=== PATIENT | male | born 1955 | race Caucasian/White ===

== ENCOUNTER 2021-01-31 10:00 | Emergency (ER) | payer MEDICARE, OTHER, SELFPAY ==
[2021-01-31 10:19] VITALS: BP 191/88; PULSE 96; RESP 22; TEMP 37.3; O2SAT 95; BMI 56.9
--- NOTE | 2021-01-31 10:22 | DI.US.S_ITS ---
PROCEDURE: US PERIPH VENOUS LOW EXTREM LT INDICATIONS: Lower L leg pain, swelling, redness TECHNIQUE: Real-time imaging, as well as color and pulse Doppler interrogation, were performed of the lower extremity deep veins from the inguinal ligament to the popliteal fossa. COMPARISON: None. FINDINGS: The common femoral, femoral and popliteal veins are normally compressible, and free of intraluminal thrombus. Color and pulse Doppler demonstrate normal phasic intraluminal flow. There is normal augmentation response to distal compression maneuver. IMPRESSION: No DVT found. Quality of visualization is limited by patient large body habitus. Dictated by: Jese Acevedo M.D. on 01/31/2021 at 11:13 Approved by: Jese Acevedo M.D. on 01/31/2021 at 11:13
--- NOTE | 2021-01-31 14:35 | ED_ITS ---
HPI - Extremity Injury (Lower) General Chief Complaint: Extremity Injury, Lower Stated Complaint: infection in lower left leg/ blood clot? Time Seen by Provider: 01/31/21 14:35 Source: patient Mode of arrival: Ambulatory Limitations: no limitations History of Present Illness HPI Narrative: 65-year-old male comes emergency department with complaint of infection in his left lower leg. Patient states he is chronically swollen legs, his swelling has not worsened, he has some chronic erythema and venous stasis changes but noted some new redness in the lower she in region. Patient states tender. It has not been draining. He states it is worse when he lowers his leg and when elevated is improved. Patient has not had any fevers. He denies any new chest pain, shortness of breath, no nausea or vomiting, no chills. No other GI or urinary symptoms. Patient does take medication for gout but does not feel the pain as much in his joint as higher up in the wheeler. He is on metoprolol, simvastatin, hydrochlorothiazide as well as Lasix. And takes allopurinol as well. Related Data Home Medications Medication Instructions Recorded Confirmed tamsulosin 0.4 mg capsule (Flomax) 0.4 mg PO QDAY #0 08/20/16 allopurinol 100 mg tablet 100 mg PO DAILY 01/31/21 01/31/21 furosemide 20 mg tablet (Lasix) 20 mg PO DAILY 01/31/21 01/31/21 hydrochlorothiazide 25 mg tablet 25 mg PO DAILY 01/31/21 01/31/21 losartan 50 mg tablet 50 mg PO DAILY 01/31/21 01/31/21 metoprolol succinate 200 mg 200 mg PO DAILY 01/31/21 01/31/21 tablet,extended release 24 hr omeprazole 20 mg capsule,delayed 20 mg PO DAILY 01/31/21 01/31/21 release simvastatin 20 mg tablet (Zocor) 20 mg PO DAILY 01/31/21 01/31/21 Previous Rx's Medication Instructions Recorded doxycycline hyclate 100 mg tablet 100 mg PO BID #20 tab 01/31/21 hydrocodone 5 mg-acetaminophen 325 1 tab PO Q6H PRN #5 tab 01/31/21 mg tablet Allergies Allergy/AdvReac Type Severity Reaction Status Date / Time Influenza Virus Vaccines Allergy Severe Abcess Verified 01/31/21 10:19 [INFLUENZA VIRUS VACCINES] Review of Systems Review of Systems ROS Unobtainable: All systems reviewed & are unremarkable except as noted in HPI and below Patient History Social History Smoking Status: Never smoker Smoking Status: Never smoker alcohol intake frequency: a few times a month Substance Use Type: does not use Exam Narrative Exam Narrative: GENERAL: Alert and oriented x three, male in mild distress. HEENT: Head normocephalic, atraumatic, EOMI, pupils reactive, face symmetric, moist mucous membranes NECK: Supple, full range of motion CARDIOVASCULAR: Regular rate and rhythm without murmurs, rubs or gallops. RESPIRATORY: Breath sounds equal bilaterally, no wheezes rales or rhonchi. ABDOMEN: Soft, nontender. Normoactive bowel sounds all 4 quadrants. No guarding or rebound, rigidity, no mass : No CVA tenderness EXTREMITIES: Normal range of motion, patient has bilateral lower extremity edema. Rate is equal to left. Patient has some warmth erythema of the anterior wheeler, there is no fluid collection or induration. He does have some chronic venous stasis changes on both lower extremities present. Patient does not have any bony tenderness appreciated. Cap refill is less than 2 seconds and sensation is intact. Neurovascularly intact NEUROLOGICAL: Cranial nerves II through XII grossly intact. Moving all extremities SKIN: Warm, dry, no petechiae, no wounds or lacerations noted. Initial Vital Signs Initial Vital Signs: Vital Signs Temperature 99.2 F 01/31/21 10:19 Pulse Rate 96 H 01/31/21 10:19 Respiratory Rate 22 01/31/21 10:19 Blood Pressure 191/88 H 01/31/21 10:19 Pulse Oximetry 95 01/31/21 10:19 Course Orders Ordered: Discontinued Medications Hydrocodone Bitart/Acetaminophen (Hydrocodone/Acet 5/325 Tablet) 1 tab PO NOW ONE Stop: 01/31/21 14:50 Last Admin: 01/31/21 14:59 Dose: 1 tab Documented by: SANAM Doxycycline Hyclate (Doxycycline Hyclate 100 Mg Tablet) 100 mg PO NOW ONE Stop: 01/31/21 14:50 Last Admin: 01/31/21 14:59 Dose: 100 mg Documented by: SANAM Vital Signs Vital signs: Vital Signs - 8 hr 01/31/21 15:22 Temperature 98 F Pulse Rate 101 H Respiratory Rate 24 Blood Pressure 199/91 H Pulse Oximetry 96 MDM - Extremity Injury (Lower) Imaging Data Extremity x-ray #1: Radiologist's Impression: Deshawn Swann 65 M [address] [id number] ReportSigned Patient: Deshawn Swann GMR#: [id number]: [id number]:[id number]/Sex: 65 / MDate of Service: 01/31/21Loc: EDAccession Number: [id number] Procedure: US periph venous low extrem lt Ordering Provider: Margarita Walden D.O. PROCEDURE: US PERIPH VENOUS LOW EXTREM LT INDICATIONS: Lower L leg pain, swelling, redness TECHNIQUE: Real-time imaging, as well as color and pulse Doppler interrogation, were performed of the lower extremity deep veins from the inguinal ligament to the popliteal fossa. COMPARISON: None. FINDINGS: The common femoral, femoral and popliteal veins are normally compressible, and free of intraluminal thrombus. Color and pulse Doppler demonstrate normal phasic intraluminal flow. There is normal augmentation response to distal compression maneuver. IMPRESSION: No DVT found. Quality of visualization is limited by patient large body habitus. Dictated by: Jese Acevedo M.D. on 01/31/2021 at 11:13 Approved by: Jese Acevedo M.D. on 01/31/2021 at 11:13 [facility] Narrative Medical decision making narrative: 65-year-old male comes with complaints of erythema, pain and discomfort in his left lower extremity. DVT ultrasound is negative. Patient has not appreciated new swelling in his extremities. He has not had any new cardiac symptoms that make me suspicious for acute onset of CHF but he does appear to have developed a cellulitis on his wheeler. Patient was started on oral medication. Short prescription of pain medication and encouraged to return for worsening symptoms. Discharge Plan Departure Patient Disposition: Home Clinical Impression: Cellulitis of left leg Instructions: DI for Cellulitis -- Adult Activity Restrictions/Additional Instructions: Follow-up in the next week for recheck if you are not having significant improvement/resolution of your symptoms. Take antibiotics until completely gone. Take pain medication as needed. This medication can make you sleepy do not drive, perform hazardous activities or make any major decisions while taking it. This medication will make you constipated please take a stool softener once to twice daily until stools are soft and regular. Prescription to [facility] in [place]. Elevate legs regularly when your able. Continue home medications as prescribed. Please return for fevers, rapidly worsening redness, swelling, increasing pain, new chest pain or shortness of breath, lightheadedness or passing out, new numbness or tingling or weakness of her extremities Prescriptions: New hydrocodone-acetaminophen 5-325 mg tablet 1 tab PO Q6H PRN (Reason: pain) Qty: 5 RF: 0 doxycycline hyclate 100 mg tablet 100 mg PO BID Qty: 20 RF: 0 No Action losartan 50 mg tablet 50 mg PO DAILY RF: 0 simvastatin [Zocor] 20 mg tablet 20 mg PO DAILY RF: 0 omeprazole 20 mg capsule,delayed release(DR/EC) 20 mg PO DAILY RF: 0 hydrochlorothiazide 25 mg tablet 25 mg PO DAILY RF: 0 metoprolol succinate 200 mg tablet extended release 24 hr 200 mg PO DAILY RF: 0 furosemide [Lasix] 20 mg tablet 20 mg PO DAILY RF: 0 allopurinol 100 mg tablet 100 mg PO DAILY RF: 0 tamsulosin [Flomax] 0.4 MG capsule,extended release 24hr 0.4 mg PO QDAY Qty: 0 RF: 0 Referrals: Sudhakar Up MD [Primary Care Provider] -
[2021-01-31] MEDS: DOXYCYCLINE HYCLATE 100 MG TABLET PO (14:59)
[2021-01-31] MEDS: HYDROCODONE/ACET 5/325 TABLET 1 TAB PO (14:59)
[2021-01-31 15:22] VITALS: BP 199/91; PULSE 101; RESP 24; TEMP 36.6; O2SAT 96
== END 2021-01-31 15:23 | disposition home or self-care (01) ==
PROVIDERS: Emergency Provider Emergency Medicine; Family Provider Internal Medicine; PCP Internal Medicine
DX: L03.116 Cellulitis of left lower limb (principal)
CPT/HCPCS: 93971; 99283

== ENCOUNTER 2021-04-09 17:19 | Emergency (ER) | payer MEDICARE, OTHER, SELFPAY ==
[2021-04-09 17:39] VITALS: BP 203/100; PULSE 81; RESP 18; TEMP 36.6; O2SAT 98; BMI 56.9
--- NOTE | 2021-04-09 20:40 | ED.BACK ---
HPI - Back Pain/Injury General Chief Complaint: Back Pain/Injury Stated Complaint: lower back spasms Time Seen by Provider: 04/09/21 19:19 Source: patient Limitations: no limitations History of Present Illness HPI Narrative: This is a 66-year-old male who states he tweaked his back getting out of bed earlier. He states as the day has progressed he has had more spasm and tightness particularly in left side. He has not had any other injuries. He denies any radiation down his legs. No numbness, tingling or weakness. No loss of bowel or bladder control. He has not had any significant back issues in the past. He has not any prior back surgeries. Patient states that movement definitely makes it worse. Patient has not had anything for pain today. He denies fevers. He denies any other symptoms. He denies any saddle anesthesia. He does take anticoagulant for atrial fibrillation, hypertension and dyslipidemia. Related Data Home Medications Medication Instructions Recorded Confirmed tamsulosin 0.4 mg capsule (Flomax) 0.4 mg PO QDAY #0 08/20/16 allopurinol 100 mg tablet 100 mg PO DAILY 01/31/21 01/31/21 furosemide 20 mg tablet (Lasix) 20 mg PO DAILY 01/31/21 01/31/21 hydrochlorothiazide 25 mg tablet 25 mg PO DAILY 01/31/21 01/31/21 losartan 50 mg tablet 50 mg PO DAILY 01/31/21 01/31/21 metoprolol succinate 200 mg 200 mg PO DAILY 01/31/21 01/31/21 tablet,extended release 24 hr omeprazole 20 mg capsule,delayed 20 mg PO DAILY 01/31/21 01/31/21 release simvastatin 20 mg tablet (Zocor) 20 mg PO DAILY 01/31/21 01/31/21 Previous Rx's Medication Instructions Recorded doxycycline hyclate 100 mg tablet 100 mg PO BID #20 tab 01/31/21 hydrocodone 5 mg-acetaminophen 325 1 tab PO Q6H PRN #5 tab 01/31/21 mg tablet diazepam 10 mg tablet (Valium) 10 mg PO TID PRN #10 tab 04/09/21 oxycodone 5 mg tablet 5 mg PO QID PRN #10 tab 04/09/21 Allergies Allergy/AdvReac Type Severity Reaction Status Date / Time Influenza Virus Vaccines Allergy Severe Abcess Verified 04/09/21 17:39 [INFLUENZA VIRUS VACCINES] Review of Systems Review of Systems ROS Unobtainable: All systems reviewed & are unremarkable except as noted in HPI and below Patient History Social History Smoking Status: Never smoker Smoking Status: Never smoker alcohol intake frequency: a few times a month Substance Use Type: does not use Exam Narrative Exam Narrative: GENERAL: Alert and oriented x three, obese male in milddistress. Patient is seated in wheelchair. HEENT: Head normocephalic, atraumatic, EOMI, pupils reactive, face symmetric, moist mucous membranes NECK: Supple, full range of motion CARDIOVASCULAR: Regular rate and rhythm without murmurs, rubs or gallops. RESPIRATORY: Breath sounds equal bilaterally, no wheezes rales or rhonchi. ABDOMEN: Soft, nontender. Normoactive bowel sounds all 4 quadrants. No guarding or rebound, rigidity, no mass : No CVA tenderness BACK: No cervical, thoracic or lumbar vertebral point tenderness. Patient has positive for decreased range of motion. Patient is quite uncomfortable leaning forward. Rectal exam is deferred. Muscle strength is 5/5 in lower extremities. Patient does have increased pain with straight leg raise on the right. He does not with the left. DTRs are 2/4 and lower extremities. Dorsalis pedis and tibialis pulses are 2+ and lower extremities. Sensation is intact in the lower extremities. EXTREMITIES: Normal range of motion, bilateral lower extremity edema. Neurovascularly intact NEUROLOGICAL: Cranial nerves II through XII grossly intact. Moving all extremities SKIN: Warm, dry, no petechiae, no rashes or lesions. Initial Vital Signs Initial Vital Signs: Vital Signs Temperature 97.8 F 04/09/21 17:39 Pulse Rate 81 04/09/21 17:39 Respiratory Rate 18 04/09/21 17:39 Blood Pressure 203/100 H 04/09/21 17:39 Pulse Oximetry 98 04/09/21 17:39 Course Orders Ordered: Discontinued Medications Diazepam (Diazepam 5 Mg Tablet) 10 mg PO NOW ONE Stop: 04/09/21 22:10 Last Admin: 04/09/21 22:26 Dose: 10 mg Documented by: KAYLEY Morphine Sulfate (Morphine 4 Mg/Ml Inj) 4 mg IM NOW ONE Stop: 09/07/21 22:10 Last Admin: 04/09/21 22:26 Dose: 4 mg Documented by: KAYLEY Oxycodone/Acetaminophen (Oxycodone/Apap 5/325 Prepack) 1 bottle [facility] [place] [facility] ONE Stop: 04/09/21 22:16 Last Admin: 04/09/21 22:26 Dose: 1 bottle Documented by: KAYLEY Vital Signs Vital signs: Vital Signs - 8 hr 04/09/21 22:20 Pulse Rate 83 Respiratory Rate 16 Blood Pressure 214/38 H Pulse Oximetry 100 MDM - Back Pain/Injury MDM Narrative Medical decision making narrative: This is a 66-year-old male who states he tweaked his back patient did not have any red flag symptoms. At this time after discussion imaging is deferred. Plan for pain control medication for spasm. Return precautions discussed. All questions answered. Discharge Plan Departure Patient Disposition: Home Clinical Impression: Back pain Instructions: DI for Back Strain or Sprain Activity Restrictions/Additional Instructions: Follow-up with your physician in the next week if your symptoms are not improving. May take muscle relaxer 1 tablet every 8 hours as needed. You may take Tylenol up to a 1000 mg every 8 hours as needed for pain. If this is an adequate you may take narcotic pain medication in addition 1 tablet every 6 hours. This medication can make you sleepy do not drive, perform hazardous activities or make any major decisions while taking it. This medication will make you constipated please take a stool softener once to twice daily until stools are soft and regular. Prescription sent to [facility] in [place]. Please return for fevers, new or worsening back pain, loss of bowel or bladder control, rapidly worsening pain, weakness, numbness or tingling in your extremities or other new or concerning symptoms. Prescriptions: New diazepam [Valium] 10 mg tablet 10 mg PO TID PRN (Reason: muscle spasm) Qty: 10 RF: 0 oxycodone 5 mg tablet 5 mg PO QID PRN (Reason: pain) Qty: 10 RF: 0 No Action losartan 50 mg tablet 50 mg PO DAILY RF: 0 simvastatin [Zocor] 20 mg tablet 20 mg PO DAILY RF: 0 omeprazole 20 mg capsule,delayed release(DR/EC) 20 mg PO DAILY RF: 0 hydrochlorothiazide 25 mg tablet 25 mg PO DAILY RF: 0 metoprolol succinate 200 mg tablet extended release 24 hr 200 mg PO DAILY RF: 0 furosemide [Lasix] 20 mg tablet 20 mg PO DAILY RF: 0 allopurinol 100 mg tablet 100 mg PO DAILY RF: 0 tamsulosin [Flomax] 0.4 MG capsule,extended release 24hr 0.4 mg PO QDAY Qty: 0 RF: 0 hydrocodone-acetaminophen 5-325 mg tablet 1 tab PO Q6H PRN (Reason: pain) Qty: 5 RF: 0 doxycycline hyclate 100 mg tablet 100 mg PO BID Qty: 20 RF: 0
--- NOTE | 2021-04-09 21:35 | PC.NURSE ---
Hurt back on thursday getting out of bed. Pain was improving until today when he was getting into his car, then started having spasms in his lower left back.
[2021-04-09 22:20] VITALS: BP 214/38; PULSE 83; RESP 16; O2SAT 100
[2021-04-09] MEDS: MORPHINE 4 MG/ML INJ IM (22:26)
[2021-04-09] MEDS: diazePAM 5 MG TABLET 10 MG PO (22:26)
[2021-04-09] MEDS: OXYCODONE/APAP 5/325 PREPACK 1 BOTTLE MISC (22:26)
== END 2021-04-09 22:41 | disposition home or self-care (01) ==
PROVIDERS: Emergency Provider Emergency Medicine; Family Provider Internal Medicine
DX: M54.9 Dorsalgia, unspecified (principal)
CPT/HCPCS: 96372; 99283; J2270

== ENCOUNTER → 2021-08-27 13:50 | Outpatient (CLI) | payer MEDICARE, OTHER, SELFPAY | PROVIDERS: Family Provider Internal Medicine; PCP Student in an Organized Health Care Education/Training Program; Referring Provider Student in an Organized Health Care Education/Training Program; Visit Provider Family Medicine | DX: I87.2 Venous insufficiency (chronic) (peripheral) (principal); L97.822 Non-pressure chronic ulcer of other part of left lower leg with fat layer exposed; L03.116 Cellulitis of left lower limb; R60.0 Localized edema; E66.01 Morbid (severe) obesity due to excess calories; Z68.43 Body mass index [BMI] 50.0-59.9, adult | CPT/HCPCS: 87070; 87075; 87077; 87185; 87186; 87205; 93923; 97597; 99204; 99214 ==

== ENCOUNTER → 2021-08-29 15:14 | Outpatient (CLI) | payer MEDICARE, OTHER, SELFPAY | PROVIDERS: Family Provider Internal Medicine; PCP Student in an Organized Health Care Education/Training Program; Referring Provider Student in an Organized Health Care Education/Training Program; Visit Provider Family Medicine | DX: I87.2 Venous insufficiency (chronic) (peripheral) (principal); L97.822 Non-pressure chronic ulcer of other part of left lower leg with fat layer exposed; R60.0 Localized edema | CPT/HCPCS: 29581 ==

== ENCOUNTER → 2021-09-05 13:40 | Outpatient (CLI) | payer MEDICARE, OTHER, SELFPAY | PROVIDERS: Family Provider Internal Medicine; PCP Student in an Organized Health Care Education/Training Program; Referring Provider Student in an Organized Health Care Education/Training Program; Visit Provider Family Medicine | DX: I87.2 Venous insufficiency (chronic) (peripheral) (principal); L97.821 Non-pressure chronic ulcer of other part of left lower leg limited to breakdown of skin; L03.116 Cellulitis of left lower limb; B96.5 Pseudomonas (aeruginosa) (mallei) (pseudomallei) as the cause of diseases classified elsewhere; B95.2 Enterococcus as the cause of diseases classified elsewhere; B95.7 Other staphylococcus as the cause of diseases classified elsewhere; R60.0 Localized edema; Z68.43 Body mass index [BMI] 50.0-59.9, adult | CPT/HCPCS: 99214 ==

== ENCOUNTER → 2021-09-12 14:34 | Outpatient (CLI) | payer MEDICARE, OTHER, SELFPAY | PROVIDERS: Family Provider Internal Medicine; PCP Student in an Organized Health Care Education/Training Program; Referring Provider Student in an Organized Health Care Education/Training Program; Visit Provider Family Medicine | DX: I87.2 Venous insufficiency (chronic) (peripheral) (principal); L97.821 Non-pressure chronic ulcer of other part of left lower leg limited to breakdown of skin; R60.0 Localized edema; M67.833 Other specified disorders of tendon, right wrist; T36.8X5A Adverse effect of other systemic antibiotics, initial encounter; Z68.43 Body mass index [BMI] 50.0-59.9, adult | CPT/HCPCS: 99214 ==

== ENCOUNTER → 2021-09-19 14:56 | Outpatient (CLI) | payer MEDICARE, OTHER, SELFPAY | PROVIDERS: Family Provider Internal Medicine; PCP Student in an Organized Health Care Education/Training Program; Referring Provider Student in an Organized Health Care Education/Training Program; Visit Provider Family Medicine | DX: I87.2 Venous insufficiency (chronic) (peripheral) (principal); L97.821 Non-pressure chronic ulcer of other part of left lower leg limited to breakdown of skin | CPT/HCPCS: 99212 ==

== ENCOUNTER 2022-02-02 06:18 | Emergency (ER) | payer MEDICARE, OTHER, SELFPAY ==
[2022-02-02 06:28] VITALS: BP 177/96; PULSE 69; RESP 22; TEMP 35.6; O2SAT 97; BMI 56.1
--- NOTE | 2022-02-02 06:34 | ED.EXTPRO ---
HPI - Extremity Problem <Shey Lee MD - Last Filed: 02/05/22 18:07> General Chief complaint: Extremity Problem,Nontraumatic Stated complaint: Rt. ankle pain Time Seen by Provider: 02/02/22 06:22 Source: patient and family Mode of arrival: Wheelchair History of Present Illness HPI Narrative: 67-year-old gentleman with morbid obesity, lower extremity edema, chronic back pain, hypertension, reflux, hyperlipidemia, BPH presents with right ankle and heel pain. He describes this as acutely starting over the last 4 days worse with the 1st step of the day or after he has been resting for a period of time. Seems to be worse on the bottom of his foot but involves the posterior portion of the heel into the Achilles tendon. He describes it is hurting over the arch of the foot. There has been no skin breakdown no significant swelling, no redness or warmth. He has not had any specific trauma of which he is aware. He typically wears compression socks and has not been able to do so because his foot has been hurting too much. Does have a history gout but has not had a flare recently in takes allopurinol regularly. He describes no change to his lower extremity edema, chest pain, palpitations, change to his baseline dyspnea. Related Data Home Medications Medication Instructions Recorded Confirmed tamsulosin 0.4 mg capsule (Flomax) 0.4 mg PO QDAY ##0 08/20/16 allopurinol 100 mg tablet 100 mg PO DAILY 01/31/21 01/31/21 furosemide 20 mg tablet (Lasix) 20 mg PO DAILY 01/31/21 01/31/21 hydrochlorothiazide 25 mg tablet 25 mg PO DAILY 01/31/21 01/31/21 losartan 50 mg tablet 50 mg PO DAILY 01/31/21 01/31/21 metoprolol succinate 200 mg 200 mg PO DAILY 01/31/21 01/31/21 tablet,extended release 24 hr omeprazole 20 mg capsule,delayed 20 mg PO DAILY 01/31/21 01/31/21 release simvastatin 20 mg tablet (Zocor) 20 mg PO DAILY 01/31/21 01/31/21 Previous Rx's Medication Instructions Recorded doxycycline hyclate 100 mg tablet 100 mg PO BID #20 tabs 01/31/21 hydrocodone 5 mg-acetaminophen 325 1 tab PO Q6H PRN pain #5 tabs 01/31/21 mg tablet diazepam 10 mg tablet (Valium) 10 mg PO TID PRN muscle spasm 0 04/09/21 days #10 tabs oxycodone 5 mg tablet 5 mg PO QID PRN pain #10 tabs 04/09/21 cyclobenzaprine 5 mg tablet 5 mg PO TID PRN muscle spasm #20 01/02/22 tabs Allergies Allergy/AdvReac Type Severity Reaction Status Date / Time Influenza Virus Vaccines Allergy Severe Abcess Verified 04/09/21 17:39 [INFLUENZA VIRUS VACCINES] Review of Systems <Shey Lee MD - Last Filed: 02/05/22 18:07> Review of Systems Narrative: Remainder of complete review of systems is otherwise unremarkable except for that included in the HPI. Patient History <Shey Lee MD - Last Filed: 02/05/22 18:07> Medical History Chronic back pain Hypertension Morbid obesity with BMI of 60.0-69.9, adult Obstructive sleep apnea on CPAP Stasis dermatitis of both legs Social History Smoking Status: Never smoker Smoking Status: Never smoker alcohol intake frequency: a few times a month Substance Use Type: does not use Exam <Shey Lee MD - Last Filed: 02/05/22 18:07> Initial Vital Signs Initial Vital Signs: Vital Signs Temperature 96.1 F L 02/02/22 06:28 Pulse Rate 69 02/02/22 06:28 Respiratory Rate 22 02/02/22 06:28 Blood Pressure 177/96 H 02/02/22 06:28 Pulse Oximetry 97 02/02/22 06:28 Oxygen Delivery Method 02/02/22 06:28 General: Morbidly obese, no acute distress, baseline dyspnea with movement HEENT: Moist mucous membranes, normal sclera with reactive pupils, Respiratory: Lungs are clear to auscultation, no wheezing no rales no rhonchi. Full and symmetrical air movement Cardiac: Regular rate and rhythm no murmurs no bruits Abdomen: Obese, Soft, nontender, good bowel tones, no flank pain Skin: Chronic venous stasis changes bilaterally lower extremities Extremities: No trauma, right ankle with no significant redness, or warmth. Tenderness from the bottom of the heel to the posterior portion of the heel radiating across the dorsum but not specific tenderness with rotation of the ankle. Mild increased edema over the dorsum of the right foot however left foot has been in a compression sock. There is no skin breakdown, no suggestion of sepsis, abscess and no obvious trauma. He is tender over the tendon insertion on the plantar surface of the heel. There is no Achilles tendon tenderness or defect to suggest an Achilles tendinitis or rupture. Psych: Cooperative, appropriate insight and affect <Matheus Hanson DO - Last Filed: 02/02/22 08:02> Initial Vital Signs Initial Vital Signs: Vital Signs Temperature 96.1 F L 02/02/22 06:28 Pulse Rate 69 02/02/22 06:28 Respiratory Rate 22 02/02/22 06:28 Blood Pressure 177/96 H 02/02/22 06:28 Pulse Oximetry 97 02/02/22 06:28 Oxygen Delivery Method 02/02/22 06:28 Course <Shey Lee MD - Last Filed: 02/05/22 18:07> Orders Ordered: Discontinued Medications Colchicine (Colchicine 0.6 Mg Tablet) 1.2 mg PO NOW ONE Stop: 02/02/22 06:36 Last Admin: 02/02/22 06:47 Dose: 1.2 mg Documented By: PANDA Vital Signs Vital signs: Vital Signs - 8 hr 02/02/22 06:28 Temperature 96.1 F L Pulse Rate 69 Respiratory Rate 22 Blood Pressure 177/96 H Pulse Oximetry 97 Oxygen Delivery Method Room Air <Matheus Hanson DO - Last Filed: 02/02/22 08:02> Orders Ordered: Discontinued Medications Colchicine (Colchicine 0.6 Mg Tablet) 1.2 mg PO NOW ONE Stop: 02/02/22 06:36 Last Admin: 02/02/22 06:47 Dose: 1.2 mg Documented By: PANDA Vital Signs Vital signs: Vital Signs - 8 hr 02/02/22 06:28 Temperature 96.1 F L Pulse Rate 69 Respiratory Rate 22 Blood Pressure 177/96 H Pulse Oximetry 97 Oxygen Delivery Method Room Air MDM - Extremity (Nontraumatic) <Shey Lee MD - Last Filed: 02/05/22 18:07> Lab Data Result diagrams: 02/02/22 06:46 02/02/22 06:46 Labs: Lab Results 02/02/22 02/02/22 Range/Units 06:46 06:46 WBC 9.1 (4.5-11.0) X10^3/uL RBC 4.53 (4.5-5.9) X10^6/uL Hgb 14.5 (13.5-17.5) g/dL Hct 41.8 (41-53) % MCV 92.2 (80-100) fL MCH 32.0 (26-34) PG MCHC 34.7 (30-36) % RDW 14.6 (11.6-14.8) % Plt Count 226 (150-400) X10^3/uL Neut % (Auto) 68.2 (50-75) % Lymph % (Auto) 18.1 L (25-40) % [place] % (Auto) 11.5 (3-14) % Eos % (Auto) 1.4 L (2-4) % Baso % (Auto) 0.8 (0-2) % Neut # (Auto) 6200 (6437-2701) /uL Lymph # (Auto) 1600 (2637-4350) /uL [place] # (Auto) 1000 H (0-900) /uL Eos # (Auto) 100 (0-450) /uL Baso # (Auto) 100 (0-100) /uL Sodium 137 (137-145) mmol/L Potassium 3.4 (3.4-5.1) mmol/L Chloride 103 (98-107) mmol/L Carbon Dioxide 28 (22-32) mmol/L BUN 32 H (9-20) mg/dL Creatinine 1.38 H (0.66-1.25) mg/dL Estimated GFR 56 L (>60) mL/min BUN/Creatinine Ratio 23.2 H (6-22) Glucose 103 (80-110) mg/dL Uric Acid 10.8 H (3.5-8.5) mg/dL Calcium 10.2 (8.4-10.2) mg/dL Total Bilirubin 0.8 (0.2-1.3) mg/dL AST 23 (17-59) IU/L ALT 17 (<50) IU/L Alkaline Phosphatase 55 (38-126) U/L Total Protein 7.5 (6.3-8.2) g/dL Albumin 4.0 (3.5-5.0) g/dL Globulin 3.5 (1.7-4.1) g/dL Albumin/Globulin Ratio 1.1 (1.0-2.8) MDM Narrative Medical decision making narrative: 67-year-old in with 4 days of acute right heel pain. Most likely diagnosis is a developing plantar fasciitis however with the acuity of the presentation rather than a gradual increase possibilities of gout, arthritis, not immediately evident trauma are all entertained. I do not think that he has a DVT nor Achilles tendon rupture. Labs are ordered, colchicine is given, x-rays requested. Patient will be turned over to Dr. Hanson at change of shift <Matheus Hanson DO - Last Filed: 02/02/22 08:02> Lab Data Labs: Lab Results 02/02/22 02/02/22 Range/Units 06:46 06:46 WBC 9.1 (4.5-11.0) X10^3/uL RBC 4.53 (4.5-5.9) X10^6/uL Hgb 14.5 (13.5-17.5) g/dL Hct 41.8 (41-53) % MCV 92.2 (80-100) fL MCH 32.0 (26-34) PG MCHC 34.7 (30-36) % RDW 14.6 (11.6-14.8) % Plt Count 226 (150-400) X10^3/uL Neut % (Auto) 68.2 (50-75) % Lymph % (Auto) 18.1 L (25-40) % [place] % (Auto) 11.5 (3-14) % Eos % (Auto) 1.4 L (2-4) % Baso % (Auto) 0.8 (0-2) % Neut # (Auto) 6200 (2496-0587) /uL Lymph # (Auto) 1600 (7957-1011) /uL [place] # (Auto) 1000 H (0-900) /uL Eos # (Auto) 100 (0-450) /uL Baso # (Auto) 100 (0-100) /uL Sodium 137 (137-145) mmol/L Potassium 3.4 (3.4-5.1) mmol/L Chloride 103 (98-107) mmol/L Carbon Dioxide 28 (22-32) mmol/L BUN 32 H (9-20) mg/dL Creatinine 1.38 H (0.66-1.25) mg/dL Estimated GFR 56 L (>60) mL/min BUN/Creatinine Ratio 23.2 H (6-22) Glucose 103 (80-110) mg/dL Uric Acid 10.8 H (3.5-8.5) mg/dL Calcium 10.2 (8.4-10.2) mg/dL Total Bilirubin 0.8 (0.2-1.3) mg/dL AST 23 (17-59) IU/L ALT 17 (<50) IU/L Alkaline Phosphatase 55 (38-126) U/L Total Protein 7.5 (6.3-8.2) g/dL Albumin 4.0 (3.5-5.0) g/dL Globulin 3.5 (1.7-4.1) g/dL Albumin/Globulin Ratio 1.1 (1.0-2.8) Imaging Data Extremity x-ray #1: My Impression: X-ray foot shows no fractures or dislocations Extremity x-ray #2: My Impression: X-ray ankle shows no fractures nor dislocation MDM Narrative Medical decision making narrative: 67-year-old in with 4 days of acute right heel pain. Most likely diagnosis is a developing plantar fasciitis however with the acuity of the presentation rather than a gradual increase possibilities of gout, arthritis, not immediately evident trauma are all entertained. I do not think that he has a DVT nor Achilles tendon rupture. Labs are ordered, colchicine is given, x-rays requested. Patient will be turned over to Dr. Hanson at change of shift Dr Hanson: Received turned over. Reviewed patient's history and physical exam. My review of the x-ray shows no signs of fractures nor dislocations. He does have a slightly elevated uric acid. His physical exam is not consistent with gout. His tenderness is located upon the insertion of the Achilles and also the insertion of the plantar fascia. I suspect this is more of a plantar fasciitis given his history and physical exam. No indication for antibiotics. I did discuss this with him. We discussed measures that he can try to help with this. He was given return precautions. He expressed understanding and agreement. Discharge Plan Departure Patient Disposition: Home Clinical Impression: Foot pain, right, Plantar fasciitis of right foot Instructions: DI for Plantar Fasciitis Activity Restrictions/Additional Instructions: Continue to take all of your medications as directed. I recommend that you research measures that you can do to try to help with the plantar fasciitis with the most helpful being stretching like we discussed. Contact your primary doctor for follow-up. Return to the emergency department for any new or worsening symptoms. Prescriptions: No Action losartan 50 mg tablet 50 mg PO DAILY simvastatin [Zocor] 20 mg tablet 20 mg PO DAILY omeprazole 20 mg capsule,delayed release(DR/EC) 20 mg PO DAILY hydrochlorothiazide 25 mg tablet 25 mg PO DAILY metoprolol succinate 200 mg tablet extended release 24 hr 200 mg PO DAILY furosemide [Lasix] 20 mg tablet 20 mg PO DAILY allopurinol 100 mg tablet 100 mg PO DAILY cyclobenzaprine 5 mg tablet 5 mg PO TID PRN (Reason: muscle spasm) Qty: 20 0RF tamsulosin [Flomax] 0.4 MG capsule,extended release 24hr 0.4 mg PO QDAY Qty: 0 diazepam [Valium] 10 mg tablet 10 mg PO TID PRN (Reason: muscle spasm) Qty: 10 0RF oxycodone 5 mg tablet 5 mg PO QID PRN (Reason: pain) Qty: 10 0RF hydrocodone-acetaminophen 5-325 mg tablet 1 tab PO Q6H PRN (Reason: pain) Qty: 5 0RF doxycycline hyclate 100 mg tablet 100 mg PO BID Qty: 20 0RF Referrals: Mili Mcnamara ARNP [Primary Care Provider] - Visit Report Forms: Patient Portal/API
--- NOTE | 2022-02-02 06:35 | DI.RAD.S_ITS ---
PROCEDURE: XR FOOT RT MIN 3V INDICATIONS: acute heel pain TECHNIQUE: 3 views of the foot were acquired. COMPARISON: None. FINDINGS: Bones: No fractures or dislocations. No suspicious bony lesions. Postoperative changes of screw fixation of the 5th metatarsal. There are degenerative changes in the midfoot at the tarsometatarsal joints. Soft tissues: No tibiotalar joint effusion. Achilles tendon appears normal. IMPRESSION: 1. No acute abnormality of the right foot. 2. Degenerative changes of the tarsometatarsal joints. 3. Postoperative changes of the 5th metatarsal. Dictated by: Fortino Mead M.D. on 02/02/2022 at 7:40 Approved by: Fortino Mead M.D. on 02/02/2022 at 7:43
--- NOTE | 2022-02-02 06:35 | DI.RAD.S_ITS ---
PROCEDURE: XR ANKLE RT MIN 3V INDICATIONS: acute pain TECHNIQUE: 3 views of the ankle were acquired. COMPARISON: None. FINDINGS: Bones: No fractures or dislocations. Ankle mortise is normally aligned. No suspicious bony lesions. There is a screw within the little toe metatarsal. Soft tissues: No tibiotalar joint effusion. Achilles tendon appears normal. IMPRESSION: 1. No acute abnormality. 2. Postoperative changes of the 5th metatarsal. Dictated by: Fortino Mead M.D. on 02/02/2022 at 7:14 Approved by: Fortino Mead M.D. on 02/02/2022 at 7:20
[2022-02-02] MEDS: COLCHICINE 0.6 MG TABLET 1.2 MG PO (06:47)
[2022-02-02 06:54] LABS: Add Manual Diff / Slide Review NO; Basophils Absolute Auto 100 /uL (0-100); Basophils Percent Auto 0.8 % (0-2); Eosinophils Absolute Auto 100 /uL (0-450); Eosinophils Percent Auto 1.4 % (2-4); Hematocrit 41.8 % (41-53); Hemoglobin 14.5 g/dL (13.5-17.5); Lymphocytes Absolute Auto 1600 /uL (1100-4500); Lymphocytes Percent Auto 18.1 % (25-40); Mean Corpuscular HGB Conc 34.7 % (30-36); Mean Corpuscular Volume 92.2 fL (80-100); Monocytes Absolute Auto 1000 /uL (0-900); Monocytes Percent Auto 11.5 % (3-14); Neutrophils Absolute Auto 6200 /uL (1500-7000); Neutrophils Percent Auto 68.2 % (50-75); Platelet Count 226 X10^3/uL (150-400); Red Blood Cell Count 4.53 X10^6/uL (4.5-5.9); Red Cell Distribution Width 14.6 % (11.6-14.8); White Blood Cell Count 9.1 X10^3/uL (4.5-11.0)
[2022-02-02 07:10] LABS: Alanine Aminotransferase 17 IU/L (<50); Albumin Globulin Ratio 1.1 (1.0-2.8); Alkaline Phosphatase 55 U/L (38-126); Aspartate Aminotransferase 23 IU/L (17-59); BUN Creatinine Ratio 23.2 (6-22); Bilirubin Total 0.8 mg/dL (0.2-1.3); Blood Urea Nitrogen 32 mg/dL (9-20); Calcium 10.2 mg/dL (8.4-10.2); Carbon Dioxide 28 mmol/L (22-32); Chloride 103 mmol/L (98-107); Estimated Glomerular Filt Rate 56 mL/min (>60); Globulin 3.5 g/dL (1.7-4.1); Glucose 103 mg/dL (80-110); HEMOLYSIS < 15 (0-50); Potassium 3.4 mmol/L (3.4-5.1); Sodium 137 mmol/L (137-145); Total Protein 7.5 g/dL (6.3-8.2); Uric Acid 10.8 mg/dL (3.5-8.5)
== END 2022-02-02 08:08 | disposition home or self-care (01) ==
PROVIDERS: Emergency Medicine; Emergency Provider Emergency Medicine; Family Provider Internal Medicine; PCP Nurse Practitioner Family
DX: M72.2 Plantar fascial fibromatosis (principal); M79.671 Pain in right foot
CPT/HCPCS: 36415; 73610; 73630; 80053; 84550; 85025; 99283; 99284

== ENCOUNTER 2022-09-24 18:34 | Emergency (ER) | payer MEDICARE, OTHER, SELFPAY ==
[2022-09-24 19:08] VITALS: BP 192/106; PULSE 87; RESP 22; TEMP 36.8; O2SAT 96; BMI 58.3
[2022-09-24 20:51] LABS: Add Manual Diff / Slide Review NO; Basophils Absolute Auto 100 /uL (0-100); Basophils Percent Auto 0.9 % (0-2); Eosinophils Absolute Auto 200 /uL (0-450); Eosinophils Percent Auto 1.8 % (2-4); Hematocrit 49.8 % (41-53); Hemoglobin 16.2 g/dL (13.5-17.5); Lymphocytes Absolute Auto 1900 /uL (1100-4500); Lymphocytes Percent Auto 21.1 % (25-40); Mean Corpuscular HGB Conc 32.5 % (30-36); Mean Corpuscular Hemoglobin 30.7 PG (26-34); Mean Corpuscular Volume 94.7 fL (80-100); Monocytes Absolute Auto 900 /uL (0-900); Monocytes Percent Auto 9.7 % (3-14); Neutrophils Absolute Auto 6000 /uL (1500-7000); Neutrophils Percent Auto 66.5 % (50-75); Platelet Count 216 X10^3/uL (150-400); Red Blood Cell Count 5.26 X10^6/uL (4.5-5.9); Red Cell Distribution Width 16.1 % (11.6-14.8)
[2022-09-24 20:54] LABS: BUN Creatinine Ratio 21.6 (6-22); Blood Urea Nitrogen 27 mg/dL (9-20); Calcium 10.4 mg/dL (8.4-10.2); Carbon Dioxide 24 mmol/L (22-32); Chloride 105 mmol/L (98-107); Estimated Glomerular Filt Rate > 60 mL/min (>60); Glucose 91 mg/dL (80-110); Lactate (Lactic Acid) 1.7 mmol/L (0.7-2.1); Potassium 4.1 mmol/L (3.4-5.1); Sodium 139 mmol/L (137-145)
[2022-09-24 20:56] LABS: HEMOLYSIS 73 (0-50)
[2022-09-24 21:10] LABS: Procalcitonin 0.07 ng/mL (<0.5)
[2022-09-24 21:26] VITALS: PULSE 85; O2SAT 97
[2022-09-24 21:30] VITALS: PULSE 82; O2SAT 98
--- NOTE | 2022-09-24 21:30 | ED_ITS ---
HPI - Skin/Abscess/Foreign Bdy General Chief complaint: Skin/Abscess/Foreign Body Stated complaint: Sent by , Ring was stuck on finger Time Seen by Provider: 09/24/22 19:47 Source: patient Mode of arrival: Ambulatory Limitations: no limitations History of Present Illness HPI narrative: Patient is a 59-year-old male who was sent by his primary doctor for evaluation of swelling and concern for infection on the back of his left hand. Patient states that he started noticing discomfort at the base of his index finger and thumb on the left hand on the back of his hand. There was no specific trauma to the area. It is warm. He is noticed swelling over the past several days. Approximately 10 days ago he was diagnosed with gout and was started on a Medrol Dosepak. He states the symptoms have not improved. He is never had gout in his hand in the past. He was able to remove the ring on his left hand at home. Patient denies any wrist pain. No elbow pain. No fevers. Related Data Home Medications Medication Instructions Recorded Confirmed tamsulosin 0.4 mg capsule (Flomax) 0.4 mg PO QDAY ##0 08/20/16 05/12/22 allopurinol 100 mg tablet 100 mg PO DAILY 01/31/21 05/12/22 furosemide 20 mg tablet (Lasix) 20 mg PO DAILY 01/31/21 05/12/22 hydrochlorothiazide 25 mg tablet 25 mg PO DAILY 01/31/21 05/12/22 losartan 50 mg tablet 50 mg PO DAILY 01/31/21 05/12/22 metoprolol succinate 200 mg 200 mg PO DAILY 01/31/21 05/12/22 tablet,extended release 24 hr omeprazole 20 mg capsule,delayed 20 mg PO DAILY 01/31/21 05/12/22 release simvastatin 20 mg tablet (Zocor) 20 mg PO DAILY 01/31/21 05/12/22 Previous Rx's Medication Instructions Recorded doxycycline hyclate 100 mg tablet 100 mg PO BID #20 tabs 01/31/21 hydrocodone 5 mg-acetaminophen 325 1 tab PO Q6H PRN pain #5 tabs 01/31/21 mg tablet diazepam 10 mg tablet (Valium) 10 mg PO TID PRN muscle spasm 0 04/09/21 days #10 tabs oxycodone 5 mg tablet 5 mg PO QID PRN pain #10 tabs 04/09/21 cyclobenzaprine 5 mg tablet 5 mg PO TID PRN muscle spasm #20 01/02/22 tabs methylprednisolone 4 mg tablets in 4 mg PO DAILY #21 ea 09/16/22 a dose pack (Medrol (Faraz)) cephalexin 500 mg capsule 500 mg PO QID 7 days #28 caps 09/24/22 Allergies Allergy/AdvReac Type Severity Reaction Status Date / Time Influenza Virus Vaccines Allergy Severe Abcess Verified 05/12/22 14:20 [INFLUENZA VIRUS VACCINES] Quinolones Allergy Verified 09/24/22 19:20 Review of Systems Constitutional Constitutional: Reports system reviewed and no additional complaints, except as documented Musculoskeletal Musculoskeletal: Reports system reviewed and no additional complaints, except as documented Integumentary/Breasts Skin/Breast: Reports system reviewed and no additional complaints, except as documented Neurologic Neurologic: Reports system reviewed and no additional complaints, except as documented Hematologic/Lymphatic On Anticoagulants: No Patient History Medical History Chronic back pain Hypertension Morbid obesity with BMI of 60.0-69.9, adult Obstructive sleep apnea on CPAP Stasis dermatitis of both legs Social History Smoking Status: Never smoker Smoking Status: Never smoker alcohol intake frequency: a few times a month Substance Use Type: does not use Exam Initial Vital Signs Initial Vital Signs: Vital Signs Temperature 98.2 F 09/24/22 19:08 Pulse Rate 87 09/24/22 19:08 Respiratory Rate 22 09/24/22 19:08 Blood Pressure 192/106 H 09/24/22 19:08 Pulse Oximetry 96 09/24/22 19:08 Oxygen Delivery Method 09/24/22 19:08 Skin Other: Warmth and mild redness to the dorsum of the left hand. No fluctuance noted. No breaks in the skin. No vesicles. Neuro Sensory Exam: no sensory deficits noted Extrem Other: Patient does have swelling to the left hand. He is able to flex and extend the left wrist without any discomfort. Left elbows unremarkable. Patient feels like that his hand is swollen. Has some discomfort because of the swelling of flexion of his fingers although when isolating the IP joint of the thumb and the MCP PIP and the IP joint of his index and ring finger he does not have discomfort. Course Orders Ordered: ED Orders 09/24/22 20:30 Basic Metabolic Panel Stat Blood Culture Stat Complete Blood Count AUTO DIFF Stat Lactate (Lactic Acid) Stat Procalcitonin Stat Discontinued Medications Cephalexin HCl (Cephalexin 250 Mg Capsule) 500 mg PO NOW ONE Stop: 09/24/22 21:32 Last Admin: 09/24/22 21:38 Dose: 500 mg Documented By: CORRINA Vital Signs Vital signs: Vital Signs - 8 hr 09/24/22 21:26 09/24/22 21:30 09/24/22 21:41 Pulse Rate 85 82 91 H Blood Pressure Pulse Oximetry 97 98 98 09/24/22 21:42 Pulse Rate Blood Pressure 217/120 H Pulse Oximetry MDM - Skin/Abscess/Foreign Bdy Lab Data Attestation: I reviewed the patient's lab results. 09/24/22 20:30 09/24/22 20:30 Labs: Lab Results 09/24/22 09/24/22 09/24/22 Range/Units 20:30 20:30 20:30 WBC 9.0 (4.5-11.0) X10^3/uL RBC 5.26 (4.5-5.9) X10^6/uL Hgb 16.2 (13.5-17.5) g/dL Hct 49.8 (41-53) % MCV 94.7 (80-100) fL MCH 30.7 (26-34) PG MCHC 32.5 (30-36) % RDW 16.1 H (11.6-14.8) % Plt Count 216 (150-400) X10^3/uL Neut % (Auto) 66.5 (50-75) % Lymph % (Auto) 21.1 L (25-40) % [place] % (Auto) 9.7 (3-14) % Eos % (Auto) 1.8 L (2-4) % Baso % (Auto) 0.9 (0-2) % Neut # (Auto) 6000 (6939-8498) /uL Lymph # (Auto) 1900 (8078-9526) /uL [place] # (Auto) 900 (0-900) /uL Eos # (Auto) 200 (0-450) /uL Baso # (Auto) 100 (0-100) /uL Sodium 139 (137-145) mmol/L Potassium 4.1 (3.4-5.1) mmol/L Chloride 105 (98-107) mmol/L Carbon Dioxide 24 (22-32) mmol/L BUN 27 H (9-20) mg/dL Creatinine 1.25 (0.66-1.25) mg/dL Estimated GFR > 60 (>60) mL/min BUN/Creatinine Ratio 21.6 (6-22) Glucose 91 (80-110) mg/dL Lactate 1.7 (0.7-2.1) mmol/L Calcium 10.4 H (8.4-10.2) mg/dL Procalcitonin 0.07 (<0.5) ng/mL MDM Narrative Medical decision making narrative: Low suspicion for fractures. Patient does have a history of gout but is on a Medrol Dosepak without any improvement of his symptoms and he is never had gout in his hand in the past. There is some mild erythema and warmth. I do have a suspicion for infection. Patient is able to bend at the joints of his fingers when in isolation and I have low suspicion for septic joint. Low suspicion for flexor tenosynovitis as the swelling is on the dorsum of his hand. Plan will be to start him on antibiotics. He was instructed that if his symptoms do not improve or specific a that worsen that he needs to return to the emergency department. He expressed understanding and agreement. Discharge Plan Departure Patient Disposition: Home Clinical Impression: Cellulitis of hand Instructions: DI for Cellulitis -- Adult Activity Restrictions/Additional Instructions: I recommend that you take the antibiotics as directed. They were sent to [facility] per your request. I recommend you continue the take the rest of your medications as directed. Return to the emergency department for new or worsening symptoms like we discussed. Prescriptions: New cephalexin 500 mg capsule 500 mg PO QID 7 Days Qty: 28 0RF No Action methylprednisolone [Medrol (Faraz)] 4 mg tablets,dose pack 4 mg PO DAILY Qty: 21 0RF losartan 50 mg tablet 50 mg PO DAILY simvastatin [Zocor] 20 mg tablet 20 mg PO DAILY omeprazole 20 mg capsule,delayed release(DR/EC) 20 mg PO DAILY hydrochlorothiazide 25 mg tablet 25 mg PO DAILY metoprolol succinate 200 mg tablet extended release 24 hr 200 mg PO DAILY furosemide [Lasix] 20 mg tablet 20 mg PO DAILY allopurinol 100 mg tablet 100 mg PO DAILY cyclobenzaprine 5 mg tablet 5 mg PO TID PRN (Reason: muscle spasm) Qty: 20 0RF tamsulosin [Flomax] 0.4 MG capsule,extended release 24hr 0.4 mg PO QDAY Qty: 0 diazepam [Valium] 10 mg tablet 10 mg PO TID PRN (Reason: muscle spasm) Qty: 10 0RF oxycodone 5 mg tablet 5 mg PO QID PRN (Reason: pain) Qty: 10 0RF hydrocodone-acetaminophen 5-325 mg tablet 1 tab PO Q6H PRN (Reason: pain) Qty: 5 0RF doxycycline hyclate 100 mg tablet 100 mg PO BID Qty: 20 0RF Referrals: Mili Mcnamara ARNP [Primary Care Provider] - Stand Alone Forms: Patient Portal/API
[2022-09-24] MEDS: cephALEXin 250 MG CAPSULE 500 MG PO (21:38)
[2022-09-24 21:41] VITALS: PULSE 91; O2SAT 98
[2022-09-24 21:42] VITALS: BP 217/120
== END 2022-09-24 21:50 | disposition home or self-care (01) ==
PROVIDERS: Emergency Provider Emergency Medicine; Family Provider Internal Medicine; PCP Nurse Practitioner Family
DX: L03.114 Cellulitis of left upper limb (principal)
CPT/HCPCS: 36415; 80048; 83605; 84145; 85025; 87040; 99283

== ENCOUNTER 2022-12-24 18:25 | Emergency (ER) | payer MEDICARE, OTHER, SELFPAY ==
[2022-12-24 18:35] VITALS: BP 200/104; PULSE 69; RESP 18; TEMP 36.7; O2SAT 97; BMI 58.3
--- NOTE | 2022-12-24 18:42 | DI.RAD.S_ITS ---
PROCEDURE: XR KNEE LT 3V INDICATIONS: swelling and pain TECHNIQUE: 3 views of the knee were acquired. COMPARISON: None. FINDINGS: Bones: No fracture or dislocation. Medial joint space narrowing. Enthesophytes of the patella. Soft tissues: No joint effusion. No suspicious soft tissue calcifications. IMPRESSION: Medial joint space narrowing. If pain persists, consider MRI. Dictated by: Fortino Mead M.D. on 12/24/2022 at 19:23 Approved by: Fortino Mead M.D. on 12/24/2022 at 19:24
--- NOTE | 2022-12-24 19:54 | ED.EXTPRO ---
HPI - Extremity Problem General Chief complaint: Extremity Problem,Nontraumatic Stated complaint: thinks infection in lt knee lt heel bruised Time Seen by Provider: 12/24/22 19:37 Source: patient Mode of arrival: Family Vehicle History of Present Illness HPI Narrative: Patient is a 59-year-old male. He does have a history of gout. He is not diabetic. Has had bursitis in the past. Is here for evaluation of discomfort to his left knee. He has some redness over the knee. He states that it feels like that there is potentially has an infection. He denies any trauma. He states this feels different than his history of gout. He also has tenderness on the back of his left heel. There was no specific injury to this area. Through regard to his knee he has been dry heat and ice and keeping it elevated and also anti-inflammatories without any improvement. States the pain is on the top outside portion of his knee. It does hurt when he bends his knee and also when he stands. When he is lying in bed the symptoms are much more tolerable Related Data Home Medications Medication Instructions Recorded Confirmed tamsulosin 0.4 mg capsule (Flomax) 0.4 mg PO QDAY ##0 08/20/16 05/12/22 allopurinol 100 mg tablet 100 mg PO DAILY 01/31/21 05/12/22 furosemide 20 mg tablet (Lasix) 20 mg PO DAILY 01/31/21 05/12/22 hydrochlorothiazide 25 mg tablet 25 mg PO DAILY 01/31/21 05/12/22 losartan 50 mg tablet 50 mg PO DAILY 01/31/21 05/12/22 metoprolol succinate 200 mg 200 mg PO DAILY 01/31/21 05/12/22 tablet,extended release 24 hr omeprazole 20 mg capsule,delayed 20 mg PO DAILY 01/31/21 05/12/22 release simvastatin 20 mg tablet (Zocor) 20 mg PO DAILY 01/31/21 05/12/22 Previous Rx's Medication Instructions Recorded doxycycline hyclate 100 mg tablet 100 mg PO BID #20 tabs 01/31/21 hydrocodone 5 mg-acetaminophen 325 1 tab PO Q6H PRN pain #5 tabs 01/31/21 mg tablet diazepam 10 mg tablet (Valium) 10 mg PO TID PRN muscle spasm 0 04/09/21 days #10 tabs oxycodone 5 mg tablet 5 mg PO QID PRN pain #10 tabs 04/09/21 cyclobenzaprine 5 mg tablet 5 mg PO TID PRN muscle spasm #20 01/02/22 tabs methylprednisolone 4 mg tablets in 4 mg PO DAILY #21 ea 09/16/22 a dose pack (Medrol (Faraz)) sulfamethoxazole 400 1 tab PO BID 10 days #20 tabs 12/24/22 mg-trimethoprim 80 mg tablet (Bactrim) Allergies Allergy/AdvReac Type Severity Reaction Status Date / Time Influenza Virus Vaccines Allergy Severe Abcess Verified 12/24/22 18:34 [INFLUENZA VIRUS VACCINES] cephalexin [From Keflex] Allergy Joint Pain Verified 12/24/22 18:41 Quinolones Allergy Verified 12/24/22 18:34 Review of Systems Constitutional Constitutional: Reports system reviewed and no additional complaints, except as documented Musculoskeletal Musculoskeletal: Reports system reviewed and no additional complaints, except as documented Integumentary/Breasts Skin/Breast: Reports system reviewed and no additional complaints, except as documented Patient History Medical History Chronic back pain Hypertension Morbid obesity with BMI of 60.0-69.9, adult Obstructive sleep apnea on CPAP Stasis dermatitis of both legs Social History Smoking Status: Never smoker Smoking Status: Never smoker alcohol intake frequency: holidays/special occasions only Substance Use Type: does not use Exam Initial Vital Signs Initial Vital Signs: Vital Signs Temperature 98.1 F 12/24/22 18:35 Pulse Rate 69 12/24/22 18:35 Respiratory Rate 18 12/24/22 18:35 Blood Pressure 200/104 H 12/24/22 18:35 Pulse Oximetry 97 12/24/22 18:35 Oxygen Delivery Method Room Air 12/24/22 18:35 Skin Other: Redness over the superior lateral portion of the knee. Extrem Other: Patient does have tenderness to the insertion point of the Achilles tendon on the left heel. There is no redness over the area. His Achilles is intact. You can flex and extended his ankle. Patient does have some tenderness along the superior lateral aspect and over the suprapatellar region of the left knee. He is no tenderness along the hamstring tendons. No tenderness along the mediolateral joint line. Passively can flex and extend his knee without which discomfort. Course Orders Ordered: ED Orders 12/24/22 18:42 XR knee LT 3V Stat Discontinued Medications Doxycycline Hyclate (Doxycycline Hyclate 100 Mg Tablet) 100 mg PO NOW ONE Stop: 12/24/22 19:55 Last Admin: 12/24/22 20:18 Dose: Not Given Documented By: KLS Trimethoprim/Sulfamethoxazole (Trimeth/Sulfa 160/800 (Ds) Tablet) 1 tab PO NOW ONE Stop: 12/24/22 19:56 Last Admin: 12/24/22 20:10 Dose: 1 tab Documented By: AP Vital Signs Vital signs: Vital Signs - 8 hr 12/24/22 20:10 Pulse Rate 80 Respiratory Rate 18 Blood Pressure 170/80 H Pulse Oximetry 98 Oxygen Delivery Method Room Air MDM - Extremity (Nontraumatic) Imaging Data Extremity x-ray #1: Radiologist's Impression: PROCEDURE:? XR KNEE LT 3V ? INDICATIONS:? swelling and pain ? TECHNIQUE:? 3 views of the knee were acquired.? ? COMPARISON:? None. ? FINDINGS:? ? Bones:? No fracture or dislocation.? Medial joint space narrowing.? Enthesophytes of the patella. ? Soft tissues:? No joint effusion.? No suspicious soft tissue calcifications.? ? ? IMPRESSION:? Medial joint space narrowing.? If pain persists, consider MRI. [facility] Narrative Medical decision making narrative: X-ray is unremarkable. Regard to his left heel I suspect that he does have some tendonitis specifically the insertion portion of the left Achilles tendon. No indication for radiologic studies. There is no redness over the area. The going to his left knee considered gout however the patient states this does not feel like his history of gout. Also considered septic joint however he is no mediolateral joint line tenderness. He is no tenderness with passive flexion-extension of the left knee. We discussed potentially doing a knee aspiration although my suspicion for a septic joint is low and I feel that the risks of potentially causing infection is too great. We did consider a arthritis flare although the redness and pain seem to be more localized for this. Considered a septic bursitis versus cellulitis so we will treat with antibiotics. He was given return precautions and follow-up instructions. He expressed understanding and agreement. Discharge Plan Departure Patient Disposition: Home Clinical Impression: Bursitis Instructions: Bursitis Activity Restrictions/Additional Instructions: A prescription for antibiotics was sent to [facility] per your request. I also recommend that you continue with the other conservative measures such as ice and elevation. Contact your primary doctor for follow-up. Return to the emergency department for new or worsening symptoms. Prescriptions: New sulfamethoxazole-trimethoprim [Bactrim] 400-80 mg tablet 1 tab PO BID 10 Days Qty: 20 0RF No Action methylprednisolone [Medrol (Faraz)] 4 mg tablets,dose pack 4 mg PO DAILY Qty: 21 0RF losartan 50 mg tablet 50 mg PO DAILY simvastatin [Zocor] 20 mg tablet 20 mg PO DAILY omeprazole 20 mg capsule,delayed release(DR/EC) 20 mg PO DAILY hydrochlorothiazide 25 mg tablet 25 mg PO DAILY metoprolol succinate 200 mg tablet extended release 24 hr 200 mg PO DAILY furosemide [Lasix] 20 mg tablet 20 mg PO DAILY allopurinol 100 mg tablet 100 mg PO DAILY cyclobenzaprine 5 mg tablet 5 mg PO TID PRN (Reason: muscle spasm) Qty: 20 0RF tamsulosin [Flomax] 0.4 MG capsule,extended release 24hr 0.4 mg PO QDAY Qty: 0 diazepam [Valium] 10 mg tablet 10 mg PO TID PRN (Reason: muscle spasm) Qty: 10 0RF oxycodone 5 mg tablet 5 mg PO QID PRN (Reason: pain) Qty: 10 0RF hydrocodone-acetaminophen 5-325 mg tablet 1 tab PO Q6H PRN (Reason: pain) Qty: 5 0RF doxycycline hyclate 100 mg tablet 100 mg PO BID Qty: 20 0RF Referrals: Mili Mcnamara ARNP [Primary Care Provider] - Stand Alone Forms: Patient Portal/API
[2022-12-24 20:10] VITALS: BP 170/80; PULSE 80; RESP 18; O2SAT 98
[2022-12-24] MEDS: TRIMETH/SULFA 160/800 (DS) TABLET 1 TAB PO (20:10)
== END 2022-12-24 20:10 | disposition home or self-care (01) ==
PROVIDERS: Emergency Provider Emergency Medicine; Family Provider Internal Medicine; PCP Nurse Practitioner Family
DX: M70.52 Other bursitis of knee, left knee (principal); Z79.01 Long term (current) use of anticoagulants
CPT/HCPCS: 73562; 99283

== ENCOUNTER 2023-06-20 07:31 | Emergency (ER) | payer MEDICARE, OTHER, SELFPAY ==
[2023-06-20] VITALS (10 sets, daily range): BP systolic 143–194; BP diastolic 81–112; PULSE 76–92; RESP 17; TEMP 36.2; O2SAT 94–97; BMI 56.9
--- NOTE | 2023-06-20 07:50 | ED_ITS ---
HPI - Skin/Abscess/Foreign Bdy General Chief complaint: Skin/Abscess/Foreign Body Stated complaint: cellulitis in both legs, sent by [facility] Time Seen by Provider: 06/20/23 07:49 Source: patient, RN notes reviewed, old records reviewed and other (sent by [facility]) Mode of arrival: Ambulatory Limitations: no limitations History of Present Illness HPI narrative: 68-year-old male with hypertension, dyslipidemia, BPH, chronic venous stasis presents with persistent redness, weeping of his bilateral lower extremities with wound on his anterior wheeler on the right that will not heal. Patient denies fevers or chills. No chest pain or shortness of breath, no lightheadedness or passing out. No vomiting. No diarrhea constipation. Patient states he is had this problem on and off in the past he has seen Wound Care in the past. States he was seen started on doxycycline completed it without any improvement. He states he is had persistent weeping and skin breakdown for the past 3 weeks. Patient states there is a wound that opened up on the right anterior wheeler which has not healed. He states it is itchy but not really painful. He denies any history of neuropathy. He states they have been wrapping his legs placing an antibiotic ointment and then wearing Compression stockings daily without any improvement. Patient presents today after going to the walk-in clinic he would tried to follow up with his primary care in the [facility] but can not get in until July 28. states he has allergies to flu vaccine, cephalexin and quinolones.? Has a prior history of gastric bypass remotely.? No tobacco, alcohol or illicit.? Related Data Home Medications Medication Instructions Recorded Confirmed tamsulosin 0.4 mg capsule (Flomax) 0.4 mg PO QDAY ##0 08/20/16 06/20/23 allopurinol 100 mg tablet 100 mg PO DAILY 01/31/21 06/20/23 furosemide 20 mg tablet (Lasix) 20 mg PO DAILY 01/31/21 06/20/23 hydrochlorothiazide 25 mg tablet 25 mg PO DAILY 01/31/21 06/20/23 losartan 50 mg tablet 50 mg PO DAILY 01/31/21 06/20/23 metoprolol succinate 200 mg 200 mg PO DAILY 01/31/21 06/20/23 tablet,extended release 24 hr omeprazole 20 mg capsule,delayed 20 mg PO DAILY 01/31/21 06/20/23 release simvastatin 20 mg tablet (Zocor) 20 mg PO DAILY 01/31/21 06/20/23 Previous Rx's Medication Instructions Recorded hydrocodone 5 mg-acetaminophen 325 1 tab PO Q6H PRN pain #5 tabs 01/31/21 mg tablet diazepam 10 mg tablet (Valium) 10 mg PO TID PRN muscle spasm 0 04/09/21 days #10 tabs cyclobenzaprine 5 mg tablet 5 mg PO TID PRN muscle spasm #20 01/02/22 tabs clindamycin HCl 300 mg capsule 300 mg PO QID #40 caps 06/20/23 furosemide 20 mg tablet (Lasix) 40 mg (2 x 20 mg) PO DAILY #10 tabs 06/20/23 mupirocin calcium 2 % topical cream 1 applic topical BID #30 grams 06/20/23 Allergies Allergy/AdvReac Type Severity Reaction Status Date / Time Influenza Virus Vaccines Allergy Severe Abcess Verified 06/20/23 07:58 [INFLUENZA VIRUS VACCINES] cephalexin [From Keflex] Allergy Joint Pain Verified 06/20/23 07:58 Quinolones Allergy Verified 06/20/23 07:58 Review of Systems Review of Systems ROS Unobtainable: All systems reviewed & are unremarkable except as noted in HPI and below Patient History Medical History Chronic back pain Stasis dermatitis of both legs Obstructive sleep apnea on CPAP Hypertension Morbid obesity with BMI of 60.0-69.9, adult Social History Smoking Status: Never smoker Smoking Status: Never smoker alcohol intake frequency: holidays/special occasions only Substance Use Type: does not use Exam Narrative Exam Narrative: GENERAL: Alert and oriented x three, obese male in mild distress. HEENT: Head normocephalic, atraumatic, EOMI, pupils reactive, face symmetric, moist mucous membranes NECK: Supple, full range of motion CARDIOVASCULAR: Regular rate and rhythm without murmurs, rubs or gallops. RESPIRATORY: Breath sounds equal bilaterally, no wheezes rales or rhonchi. ABDOMEN: Soft, nontender. Normoactive bowel sounds all 4 quadrants. No guarding or rebound, rigidity, no mass : No CVA tenderness EXTREMITIES: Normal range of motion, no clubbing. Neurovascularly intact. Patient has bilateral lower extremity edema, he has hyperkeratotic skin with skin breakdown, erythema bilateral anterior shins left leg has circumferential erythema with weeping no open wound appreciated. Extending over the dorsum of the foot and stopping just below the knee. On the right is mainly more the anterior wheeler with erythema, weeping and hyperkeratotic skin but patient does have about a 4 by 0.5 cm wound on the anterior wheeler just into the for several layers of dermis with QRS serosanguineous drainage. No purulent drainage or foul odor. Patient has palpable pulses. Cap refill less than 2 seconds bilateral toes. Patient has sensation to light touch. There is mild warmth to the areas of erythema. NEUROLOGICAL: Cranial nerves II through XII grossly intact. Moving all extremities SKIN: Warm, dry, no petechiae, no rashes or lesions other than noted above. Initial Vital Signs Initial Vital Signs: Vital Signs Temperature 97.2 F L 06/20/23 07:35 Pulse Rate 92 H 06/20/23 07:35 Respiratory Rate 17 06/20/23 07:35 Blood Pressure 191/109 H 06/20/23 07:35 Pulse Oximetry 97 06/20/23 07:35 Oxygen Delivery Method Room Air 06/20/23 07:35 Course Orders Ordered: ED Orders 06/20/23 08:07 US periph venous low extrem bi Stat 06/20/23 08:25 BNP [NT-proBNP (BNP-Adult 18+)] Stat CBC Auto Diff [Complete Blood Count AUTO DIFF] Stat CMP [Comprehensive Metabolic Panel] Stat Procalcitonin Stat Troponin & CK Cardiac Panel Stat 06/20/23 08:50 Wound Culture and Gram Stain Stat Discontinued Medications Furosemide (Furosemide 40 Mg/4 Ml Vial) 40 mg IV NOW ONE Stop: 06/20/23 08:01 Last Admin: 06/20/23 08:40 Dose: 40 mg Documented By: JANIE Clindamycin Phosphate (Cleocin) 900 mg in 50 mls @ 50 mls/hr IV NOW ONE Stop: 06/20/23 09:00 Last Infusion: 06/20/23 09:44 Dose: Infused Documented By: Admin: 06/20/23 08:40 Dose: 50 mls/hr Documented By: JNAIE Vital Signs Vital signs: Vital Signs - 8 hr 06/20/23 07:35 06/20/23 07:57 06/20/23 08:00 Temperature 97.2 F L Pulse Rate 92 H 88 84 Respiratory Rate 17 Blood Pressure 191/109 H Pulse Oximetry 97 97 96 Oxygen Delivery Method Room Air 06/20/23 08:01 06/20/23 08:01 06/20/23 08:30 Temperature Pulse Rate 84 76 Respiratory Rate Blood Pressure 194/88 H Pulse Oximetry 94 97 Oxygen Delivery Method Room Air 06/20/23 08:31 06/20/23 08:31 06/20/23 09:00 Temperature Pulse Rate 85 Respiratory Rate Blood Pressure 160/91 H 152/100 H Pulse Oximetry 96 Oxygen Delivery Method 06/20/23 09:00 06/20/23 09:30 06/20/23 09:31 Temperature Pulse Rate 77 91 H Respiratory Rate Blood Pressure 176/112 H Pulse Oximetry 95 96 Oxygen Delivery Method 06/20/23 09:31 06/20/23 10:13 06/20/23 10:13 Temperature Pulse Rate 86 86 Respiratory Rate Blood Pressure 143/81 H Pulse Oximetry 96 97 Oxygen Delivery Method Room Air Room Air MDM - Skin/Abscess/Foreign Bdy Lab Data 06/20/23 08:25 06/20/23 08:25 Labs: Lab Results 06/20/23 Range/Units 08:25 WBC 7.7 (4.5-11.0) X10^3/uL RBC 4.27 L (4.5-5.9) X10^6/uL Hgb 13.3 L (13.5-17.5) g/dL Hct 39.3 L (41-53) % MCV 92.1 (80-100) fL MCH 31.2 (26-34) PG MCHC 33.9 (30-36) % RDW 15.3 H (11.6-14.8) % Plt Count 230 (150-400) X10^3/uL Neut % (Auto) 65.3 (50-75) % Lymph % (Auto) 17.6 L (25-40) % Schleicher % (Auto) 13.1 (3-14) % Eos % (Auto) 2.5 (2-4) % Baso % (Auto) 1.5 (0-2) % Neut # (Auto) 5000 (5235-8176) /uL Lymph # (Auto) 1400 (8138-5329) /uL Schleicher # (Auto) 1000 H (0-900) /uL Eos # (Auto) 200 (0-450) /uL Baso # (Auto) 100 (0-100) /uL Sodium 135 L (137-145) mmol/L Potassium 4.0 (3.4-5.1) mmol/L Chloride 104 (98-107) mmol/L Carbon Dioxide 24 (22-32) mmol/L BUN 31 H (9-20) mg/dL Creatinine 1.17 (0.66-1.25) mg/dL Estimated GFR > 60 (>60) mL/min BUN/Creatinine Ratio 26.5 H (6-22) Glucose 107 (80-110) mg/dL Calcium 10.4 H (8.4-10.2) mg/dL Total Bilirubin 0.8 (0.2-1.3) mg/dL AST 24 (17-59) IU/L ALT 18 (<50) IU/L Alkaline Phosphatase 37 L (38-126) U/L Total Creatine Kinase 32 L (55-170) U/L Troponin I < 0.012 (0.01-0.034) ng/mL NT-Pro-B Natriuret Pep 2580 H (<125) pg/mL Total Protein 7.3 (6.3-8.2) g/dL Albumin 3.7 (3.5-5.0) g/dL Globulin 3.6 (1.7-4.1) g/dL Albumin/Globulin Ratio 1.0 (1.0-2.8) Procalcitonin 0.08 (<0.5) ng/mL Imaging Data US - DVT: Radiologist's Impression: Close Vascular Ultrasound (Signed) Heath Barrett - 06/20/23 Knee X-Ray (Signed) [facility] - 12/24/22 Foot X-Ray (Signed) [facility] Mead - 02/02/22 Ankle X-Ray (Signed) [facility] Mead - 02/02/22 Vascular Ultrasound (Signed) Jese Acevedo - 01/31/21 Launch?[address] [address] Ultrasound Report Signed Patient: Deshawn Swann MR#: [id number] : 1955 Acct:[id number] Age/Sex: 68 / M Date of Service: 06/20/23 Loc: ED Accession Number: [id number] Procedure: US periph venous low extrem bi Ordering Provider: Margarita Walden D.O. PROCEDURE: US PERIPH VENOUS LOW EXTREM BI INDICATIONS: lower ext swelling, acute on chronic, flew to [place] TECHNIQUE: Real-time imaging, as well as color and pulse Doppler interrogation, were performed of the deep veins of both legs from the inguinal ligament to the popliteal fossa, with documentation of the visualized calf veins. COMPARISON: None. FINDINGS: Right: The common femoral, femoral, popliteal, and the visualized calf veins are normally compressible, and free of intraluminal thrombus. Color and pulse Doppler demonstrate normal phasic intravascular flow. There is normal augmentation response to distal compression maneuver. Left: The common femoral, femoral, popliteal, and the visualized calf veins are normally compressible, and free of intraluminal thrombus. Color and pulse Doppler demonstrate normal phasic intravascular flow. There is normal augmentation response to distal compression maneuver. The distal calf veins are not evaluated secondary to open wounds IMPRESSION: No findings of deep venous thrombosis in either lower extremity. Dictated by: Heath Barrett M.D. on 06/20/2023 at 8:19 Approved by: Heath Barrett M.D. on 06/20/2023 at 8:20 MDM Narrative Medical decision making narrative: 68-year-old male, appears to have chronic venous stasis changes bilateral legs with open wound on his right wheeler with an overlying infection. Patient has not had other symptoms of fluid overload but has had persistent swelling redness and weeping without any improvement he was put on doxycycline which he is completed, no additional diuretics at that time. He did not have any improvement. Patient did fly to [place] in the last 6 weeks and symptoms started about 3-4 weeks ago. Plan for labs, including BNP, renal function, wound culture and ultrasound DVT to rule out any clot complicating patient's issues. Patient does note he is seen Wound Care in the past they have been applying antibiotic ointment, dressings and compression stockings daily without any improvement. Labs show no elevated white count, hemoglobin but lower than it was in September 2022, no acute renal function changes, troponins negative but BNP is elevated 2500. DVT study is negative. Discussed with patient would recommend continuing with new course of oral antibiotics wound culture pending and referral to wound care. Patient and family have been performing appropriate wound care they apply topical antibiotic ointment, wrap his legs apply compression stockings and elevate frequently throughout the day. He and I discussed to continue this will change his topical antibiotic for the ulcer to see if this makes any difference states been using Neosporin will change mupirocin. We will change his oral antibiotic and have a culture pending. Also sent fax referral for wound care here locally to see if he can follow up on Thursday. Discussed with patient will increase his Lasix for the next 5 days for some additional diuresis to see if this will allow for his legs to heal a little bit more appropriately. Patient feels comfortable with this plan discussed any worsening changes fevers or increasing symptoms or purulent drainage to return to the emergency department. Discharge Plan Departure Patient Disposition: Home Clinical Impression: Chronic cutaneous venous stasis ulcer, Bilateral cellulitis of lower leg Activity Restrictions/Additional Instructions: Please follow up this week with wound care. Call to set up an appointment time on Thursday. Referral has been faxed over. A culture from your wound is currently pending, if this shows resistance to the current antibiotic we will contact you. Take oral antibiotics until completed. You can apply the topical antibiotic to the wound on your right wheeler with dressing changes at least once daily. Increase your Lasix to 40 mg or 2 tablets daily x5 days, you may then return to your normal Lasix dosing. Prescription sent to [facility] [place] Please return for fevers, increasing redness, swelling, purulent drainage or other new or concerning changes. Prescriptions: New furosemide [Lasix] 20 mg tablet 40 mg PO DAILY Qty: 10 0RF clindamycin HCl 300 mg capsule 300 mg PO QID Qty: 40 0RF mupirocin calcium 2 % cream 1 applic topical BID Qty: 30 0RF No Action losartan 50 mg tablet 50 mg PO DAILY simvastatin [Zocor] 20 mg tablet 20 mg PO DAILY omeprazole 20 mg capsule,delayed release(DR/EC) 20 mg PO DAILY hydrochlorothiazide 25 mg tablet 25 mg PO DAILY metoprolol succinate 200 mg tablet extended release 24 hr 200 mg PO DAILY furosemide [Lasix] 20 mg tablet 20 mg PO DAILY allopurinol 100 mg tablet 100 mg PO DAILY cyclobenzaprine 5 mg tablet 5 mg PO TID PRN (Reason: muscle spasm) Qty: 20 0RF tamsulosin [Flomax] 0.4 MG capsule,extended release 24hr 0.4 mg PO QDAY Qty: 0 diazepam [Valium] 10 mg tablet 10 mg PO TID PRN (Reason: muscle spasm) Qty: 10 0RF hydrocodone-acetaminophen 5-325 mg tablet 1 tab PO Q6H PRN (Reason: pain) Qty: 5 0RF Referrals: Mili Mcnamara ARNP [Primary Care Provider] - Stand Alone Forms: Patient Portal/API
--- NOTE | 2023-06-20 07:54 | CM.MNRNOTE ---
Patient has history of cellulitis in legs, which is usually brought on by warm weather. 1.5months ago patient went to [place] for work and says his legs became swollen and weeping again. Pt was seen at a clinic and finished taking antibiotics last week. Pain is a 3 when laying down and increases to a 7 when standing or walking. Pt has upcoming trip to [place] for work and is concerned about it getting worse.
--- NOTE | 2023-06-20 08:07 | DI.US.S_ITS ---
PROCEDURE: US PERIPH VENOUS LOW EXTREM BI INDICATIONS: lower ext swelling, acute on chronic, flew to [place] TECHNIQUE: Real-time imaging, as well as color and pulse Doppler interrogation, were performed of the deep veins of both legs from the inguinal ligament to the popliteal fossa, with documentation of the visualized calf veins. COMPARISON: None. FINDINGS: Right: The common femoral, femoral, popliteal, and the visualized calf veins are normally compressible, and free of intraluminal thrombus. Color and pulse Doppler demonstrate normal phasic intravascular flow. There is normal augmentation response to distal compression maneuver. Left: The common femoral, femoral, popliteal, and the visualized calf veins are normally compressible, and free of intraluminal thrombus. Color and pulse Doppler demonstrate normal phasic intravascular flow. There is normal augmentation response to distal compression maneuver. The distal calf veins are not evaluated secondary to open wounds IMPRESSION: No findings of deep venous thrombosis in either lower extremity. Dictated by: Heath Barrett M.D. on 06/20/2023 at 8:19 Approved by: Heath Barrett M.D. on 06/20/2023 at 8:20
[2023-06-20 08:33] LABS: Add Manual Diff / Slide Review NO; Basophils Absolute Auto 100 /uL (0-100); Basophils Percent Auto 1.5 % (0-2); Eosinophils Absolute Auto 200 /uL (0-450); Eosinophils Percent Auto 2.5 % (2-4); Hematocrit 39.3 % (41-53); Hemoglobin 13.3 g/dL (13.5-17.5); Lymphocytes Absolute Auto 1400 /uL (1100-4500); Lymphocytes Percent Auto 17.6 % (25-40); Mean Corpuscular HGB Conc 33.9 % (30-36); Mean Corpuscular Hemoglobin 31.2 PG (26-34); Mean Corpuscular Volume 92.1 fL (80-100); Monocytes Absolute Auto 1000 /uL (0-900); Monocytes Percent Auto 13.1 % (3-14); Neutrophils Absolute Auto 5000 /uL (1500-7000); Neutrophils Percent Auto 65.3 % (50-75); Platelet Count 230 X10^3/uL (150-400); Red Blood Cell Count 4.27 X10^6/uL (4.5-5.9); Red Cell Distribution Width 15.3 % (11.6-14.8); White Blood Cell Count 7.7 X10^3/uL (4.5-11.0)
[2023-06-20] MEDS: CLINDAMYCIN 900 MG/50 ML PIGGYBACK 50 MG IV (08:40)
[2023-06-20] MEDS: FUROSEMIDE 40 MG/4 ML VIAL IV (08:40)
[2023-06-20 09:10] LABS: Alanine Aminotransferase 18 IU/L (<50); Albumin 3.7 g/dL (3.5-5.0); Alkaline Phosphatase 37 U/L (38-126); Aspartate Aminotransferase 24 IU/L (17-59); BUN Creatinine Ratio 26.5 (6-22); Bilirubin Total 0.8 mg/dL (0.2-1.3); Blood Urea Nitrogen 31 mg/dL (9-20); Calcium 10.4 mg/dL (8.4-10.2); Carbon Dioxide 24 mmol/L (22-32); Chloride 104 mmol/L (98-107); Creatine Kinase 32 U/L (55-170); Estimated Glomerular Filt Rate > 60 mL/min (>60); Globulin 3.6 g/dL (1.7-4.1); Glucose 107 mg/dL (80-110); HEMOLYSIS 26 (0-50); Sodium 135 mmol/L (137-145); Total Protein 7.3 g/dL (6.3-8.2)
[2023-06-20 09:22] LABS: NT-proBNP (BNP-Adult 18+) 2580 pg/mL (<125); Troponin I < 0.012 ng/mL (0.01-0.034)
[2023-06-20 09:27] LABS: Procalcitonin 0.08 ng/mL (<0.5)
== END 2023-06-20 10:19 | disposition home or self-care (01) ==
PROVIDERS: Emergency Provider Emergency Medicine; Family Provider Internal Medicine; PCP Nurse Practitioner Family
DX: L03.116 Cellulitis of left lower limb (principal); L03.115 Cellulitis of right lower limb; I83.009 Varicose veins of unspecified lower extremity with ulcer of unspecified site
CPT/HCPCS: 36415; 80053; 82550; 83880; 84145; 84484; 85025; 87070; 87075; 87077; 87147; 87186; 87205; 93970; 96365; 96375; 99284; J1940

== ENCOUNTER → 2023-06-23 12:55 | Outpatient (CLI) | payer MEDICARE, OTHER, SELFPAY | PROVIDERS: Family Provider Internal Medicine; PCP Nurse Practitioner Family; Referring Provider Emergency Medicine; Visit Provider Surgery | DX: I87.2 Venous insufficiency (chronic) (peripheral) (principal); L97.812 Non-pressure chronic ulcer of other part of right lower leg with fat layer exposed; L97.822 Non-pressure chronic ulcer of other part of left lower leg with fat layer exposed; R60.0 Localized edema; L53.9 Erythematous condition, unspecified | CPT/HCPCS: 11042; 11045; 99213; 99214 ==

== ENCOUNTER → 2023-06-29 10:28 | Outpatient (CLI) | payer MEDICARE, OTHER, SELFPAY | PROVIDERS: Family Provider Internal Medicine; PCP Nurse Practitioner Family; Referring Provider Internal Medicine; Visit Provider Physician Assistant | DX: I87.2 Venous insufficiency (chronic) (peripheral) (principal); L97.822 Non-pressure chronic ulcer of other part of left lower leg with fat layer exposed; R60.0 Localized edema; L53.9 Erythematous condition, unspecified | CPT/HCPCS: 99213 ==

== ENCOUNTER → 2023-07-13 09:28 | Outpatient (CLI) | payer MEDICARE, OTHER, SELFPAY | PROVIDERS: Family Provider Internal Medicine; PCP Nurse Practitioner Family; Referring Provider Internal Medicine; Visit Provider Surgery | DX: I87.2 Venous insufficiency (chronic) (peripheral) (principal); L97.812 Non-pressure chronic ulcer of other part of right lower leg with fat layer exposed; L97.822 Non-pressure chronic ulcer of other part of left lower leg with fat layer exposed; R60.0 Localized edema | CPT/HCPCS: 99213 ==

== ENCOUNTER → 2023-07-18 10:58 | Outpatient (CLI) | payer MEDICARE, OTHER, SELFPAY ==
--- NOTE | 2023-07-18 11:00 | DI.RAD.S_ITS ---
PROCEDURE: XR ELBOW RT MIN 3V INDICATIONS: Right elbow pain TECHNIQUE: 3 views of the elbow were acquired. COMPARISON: None. FINDINGS: Bones: No fractures or dislocations. No suspicious bony lesions. Soft tissues: No elbow joint effusion. No suspicious soft tissue calcifications. No radiopaque foreign body. IMPRESSION: No acute bony abnormality or significant joint effusion. Dictated by: Bill Wasserman M.D. on 07/18/2023 at 12:19 Approved by: Bill Wasserman M.D. on 07/18/2023 at 12:20
== END ==
PROVIDERS: Family Provider Internal Medicine; PCP Nurse Practitioner Family; Referring Provider Registered Nurse; Visit Provider Registered Nurse
DX: M25.521 Pain in right elbow (principal)
CPT/HCPCS: 73080

== ENCOUNTER → 2023-07-20 09:50 | Outpatient (CLI) | payer MEDICARE, OTHER, SELFPAY | PROVIDERS: Family Provider Internal Medicine; PCP Nurse Practitioner Family; Referring Provider Internal Medicine; Visit Provider Surgery | DX: I87.2 Venous insufficiency (chronic) (peripheral) (principal); L97.812 Non-pressure chronic ulcer of other part of right lower leg with fat layer exposed; L97.822 Non-pressure chronic ulcer of other part of left lower leg with fat layer exposed; R60.0 Localized edema; L53.9 Erythematous condition, unspecified | CPT/HCPCS: 29581; 99213 ==

== ENCOUNTER → 2023-07-22 14:50 | Outpatient (CLI) | payer MEDICARE, OTHER, SELFPAY | PROVIDERS: Family Provider Internal Medicine; PCP Nurse Practitioner Family; Referring Provider Internal Medicine; Visit Provider Surgery | DX: I87.2 Venous insufficiency (chronic) (peripheral) (principal); L97.812 Non-pressure chronic ulcer of other part of right lower leg with fat layer exposed; R60.0 Localized edema; L53.9 Erythematous condition, unspecified | CPT/HCPCS: 99212 ==

== ENCOUNTER → 2023-07-29 11:04 | Outpatient (CLI) | payer MEDICARE, OTHER, SELFPAY | LOC: WC 11:06 | PROVIDERS: Family Provider Internal Medicine; PCP Nurse Practitioner Family; Referring Provider Nurse Practitioner Family; Visit Provider Surgery | DX: L97.811 Non-pressure chronic ulcer of other part of right lower leg limited to breakdown of skin (principal); I87.2 Venous insufficiency (chronic) (peripheral); R60.0 Localized edema; L53.9 Erythematous condition, unspecified | CPT/HCPCS: 29581 ==

== ENCOUNTER → 2023-08-04 10:51 | Outpatient (CLI) | payer MEDICARE, OTHER, SELFPAY | LOC: WC 10:52 | PROVIDERS: Family Provider Internal Medicine; PCP Nurse Practitioner Family; Referring Provider Internal Medicine; Visit Provider Surgery | DX: L97.821 Non-pressure chronic ulcer of other part of left lower leg limited to breakdown of skin (principal); L97.811 Non-pressure chronic ulcer of other part of right lower leg limited to breakdown of skin; R60.0 Localized edema; L53.9 Erythematous condition, unspecified; I48.91 Unspecified atrial fibrillation; I87.333 Chronic venous hypertension (idiopathic) with ulcer and inflammation of bilateral lower extremity | CPT/HCPCS: 87070; 87077; 87147; 87186; 87205; 97602; 99213 ==

== ENCOUNTER → 2023-08-10 09:44 | Outpatient (CLI) | payer MEDICARE, OTHER, SELFPAY | LOC: WC 09:45 | PROVIDERS: Family Provider Internal Medicine; PCP Nurse Practitioner Family; Referring Provider Internal Medicine; Visit Provider Surgery | DX: L97.811 Non-pressure chronic ulcer of other part of right lower leg limited to breakdown of skin (principal); L97.821 Non-pressure chronic ulcer of other part of left lower leg limited to breakdown of skin; I48.91 Unspecified atrial fibrillation; R60.0 Localized edema; L53.9 Erythematous condition, unspecified; I87.333 Chronic venous hypertension (idiopathic) with ulcer and inflammation of bilateral lower extremity | CPT/HCPCS: 97602; 99213 ==

== ENCOUNTER → 2023-08-17 09:10 | Outpatient (CLI) | payer MEDICARE, OTHER, SELFPAY | LOC: WC 09:12 | PROVIDERS: Family Provider Internal Medicine; PCP Nurse Practitioner Family; Referring Provider Internal Medicine; Visit Provider Physician Assistant | DX: R60.0 Localized edema (principal); I87.2 Venous insufficiency (chronic) (peripheral); I48.91 Unspecified atrial fibrillation; I10 Essential (primary) hypertension | CPT/HCPCS: 99213 ==

== ENCOUNTER 2023-09-22 08:41 | Emergency (ER) | payer MEDICARE, OTHER, SELFPAY ==
[2023-09-22 08:41] VITALS: BP 218/137; PULSE 98; RESP 16; TEMP 36.4; O2SAT 99; BMI 44.7
--- NOTE | 2023-09-22 08:51 | ED_ITS ---
HPI - Extremity Problem General Chief complaint: Extremity Injury, Upper Stated complaint: rt wrist pain Time Seen by Provider: 09/22/23 08:51 Source: patient, RN notes reviewed and old records reviewed Mode of arrival: Ambulatory Limitations: no limitations History of Present Illness HPI Narrative: 68-year-old male with history of atrial fibrillation, hypertension, dyslipidemia, gout with complaint of right wrist pain. Patient states symptoms have been present for about a week and a half. Patient states he has had gout in that wrist before. He has not had any recent trauma or injuries. He states pain is worse with supination and pronation. He has had some swelling. No warmth or erythema. Patient states he went into the walk-in clinic was given prednisone for 3 days took that and completed it on Thursday or . He states swelling is slightly improved today but still painful. Patient states no fevers or chills. No other injuries, no other swelling or pain. He does have a history of having acute kidney injury so they avoid NSAIDs. He does take allopurinol daily as well as losartan, metoprolol, Lasix, HCTZ on an aspirin daily. Patient states has had prior bariatric surgery. No tobacco, alcohol or recreational drugs. His primary care is through the [facility]. Related Data Home Medications Medication Instructions Recorded Confirmed tamsulosin 0.4 mg capsule (Flomax) 0.4 mg PO QDAY ##0 08/20/16 09/14/23 allopurinol 100 mg tablet 100 mg PO DAILY 01/31/21 09/14/23 furosemide 20 mg tablet (Lasix) 20 mg PO DAILY 01/31/21 09/14/23 hydrochlorothiazide 25 mg tablet 25 mg PO DAILY 01/31/21 09/14/23 losartan 50 mg tablet 50 mg PO DAILY 01/31/21 09/14/23 metoprolol succinate 200 mg 200 mg PO DAILY 01/31/21 09/14/23 tablet,extended release 24 hr omeprazole 20 mg capsule,delayed 20 mg PO DAILY 01/31/21 09/14/23 release simvastatin 20 mg tablet (Zocor) 20 mg PO DAILY 01/31/21 09/14/23 Previous Rx's Medication Instructions Recorded prednisone 20 mg tablet 40 mg (2 x 20 mg) PO DAILY #6 tabs 09/14/23 Allergies Allergy/AdvReac Type Severity Reaction Status Date / Time Influenza Virus Vaccines Allergy Severe Abcess Verified 09/22/23 08:52 [INFLUENZA VIRUS VACCINES] cephalexin [From Keflex] Allergy Joint Pain Verified 09/22/23 08:52 Quinolones Allergy Verified 09/22/23 08:52 Review of Systems Review of Systems ROS Unobtainable: All systems reviewed & are unremarkable except as noted in HPI and below Patient History Medical History Chronic back pain Stasis dermatitis of both legs Obstructive sleep apnea on CPAP Hypertension Morbid obesity with BMI of 60.0-69.9, adult Social History Smoking Status: Never smoker Smoking Status: Never smoker alcohol intake frequency: holidays/special occasions only Substance Use Type: does not use Exam Narrative Exam Narrative: GENERAL: Alert and oriented x three, male in mild distress. HEENT: Head normocephalic, atraumatic, EOMI, pupils reactive, face symmetric, moist mucous membranes NECK: Supple, full range of motion CARDIOVASCULAR: Regular rate and rhythm without murmurs, rubs or gallops. RESPIRATORY: Breath sounds equal bilaterally, no wheezes rales or rhonchi. ABDOMEN: Soft, nontender. Normoactive bowel sounds all 4 quadrants. No guarding or rebound, rigidity, no mass : No CVA tenderness EXTREMITIES: Normal range of motion, no clubbing. Neurovascularly intact. Patient does have edema of the wrist. No warmth. No fluid collection. Can take through full range of motion but has some discomfort. Cap refills less 2 seconds in all 5 fingers. 2+ radial pulse. NEUROLOGICAL: Cranial nerves II through XII grossly intact. Moving all extremities SKIN: Warm, dry, no petechiae, no rashes or lesions. Initial Vital Signs Initial Vital Signs: Vital Signs Temperature 97.5 F L 09/22/23 08:41 Pulse Rate 98 H 09/22/23 08:41 Respiratory Rate 16 09/22/23 08:41 Blood Pressure 218/137 H 09/22/23 08:41 Pulse Oximetry 99 09/22/23 08:41 Oxygen Delivery Method Room Air 09/22/23 08:41 Course Orders Ordered: ED Orders 09/22/23 08:51 XR wrist RT min 3V Stat Vital Signs Vital signs: Vital Signs - 8 hr 09/22/23 08:41 09/22/23 10:15 Temperature 97.5 F L Pulse Rate 98 H 66 Respiratory Rate 16 16 Blood Pressure 218/137 H 178/76 H Pulse Oximetry 99 98 Oxygen Delivery Method Room Air Room Air MDM - Extremity (Nontraumatic) Imaging Data Extremity x-ray #1: Radiologist's Impression: [address] [address] XRay Report Signed Patient: Deshawn Swann MR#: [id number] : 1955 Acct:[id number] Age/Sex: 68 / M Date of Service: 09/22/23 Loc: ED Accession Number: [id number] Procedure: XR wrist RT min 3V Ordering Provider: Margarita Walden D.O. PROCEDURE: XR WRIST RT MIN 3V INDICATIONS: right wrist pain TECHNIQUE: 3 views of the wrist were acquired. COMPARISON: [facility], CR, XR HAND 3+ VIEWS RIGHT, 03/24/2020, 1 6:30. Located Within [facility], CR, WRIST MINIMUM 3 VIEWS LEFT, 04/03/2017, 14:32. FINDINGS: Bones: No fractures or dislocations. Widening of the scapholunate interval. No suspicious bony lesions. Soft tissues: No suspicious soft tissue calcifications. IMPRESSION: Widening of the scapholunate interval suggestive of ligamentous injury. This is new compared to prior exam 03/24/2020. Dictated by: Josiah Landrum M.D. on 09/22/2023 at 9:04 Approved by: Josiah Landrum M.D. on 09/22/2023 at 9:06 [facility] Narrative Medical decision making narrative: Patient's history and exam seems most consistent with a gout flare. Was given 3 doses of steroids but may benefit from more. They do typically try to avoid NSAIDs for this patient as he has had history of acute kidney injury making colchicine or indomethacin not viable options. X-ray shows no fracture but widening of the scapholunate interval suggesting ligamentous injury. Patient does have more pain with pronation supination. Patient was placed in splint, plan for follow-up with orthopedic surgery. Discharge Plan Departure Patient Disposition: Home Clinical Impression: Pain in wrist Activity Restrictions/Additional Instructions: Your x-ray imaging shows widening at the scapholunate interval suggesting a ligamentous injury. Please call to set up follow up with Orthopedic surgery. Contact information is included below. You can continue with Tylenol up to a 1000 mg every 6 hours for pain. Splint Care: Keep splint clean and dry. Elevated affected body part to decrease swelling. OK to use ice pack on the affected body part. Use for 15-20 minutes each time, for 5-6x per day. If you develop worsening pain, numbness, tingling, discoloration of the affected body part, loosen the splint by loosening the LUIS M wrap, and either see your doctor for an urgent re-assessment, or return to the Emergency Department. Return to the Emergency Department for any new or worsening symptoms. Prescriptions: No Action prednisone 20 mg tablet 40 mg PO DAILY Qty: 6 0RF losartan 50 mg tablet 50 mg PO DAILY simvastatin [Zocor] 20 mg tablet 20 mg PO DAILY omeprazole 20 mg capsule,delayed release(DR/EC) 20 mg PO DAILY hydrochlorothiazide 25 mg tablet 25 mg PO DAILY metoprolol succinate 200 mg tablet extended release 24 hr 200 mg PO DAILY furosemide [Lasix] 20 mg tablet 20 mg PO DAILY allopurinol 100 mg tablet 100 mg PO DAILY tamsulosin [Flomax] 0.4 MG capsule,extended release 24hr 0.4 mg PO QDAY Qty: 0 Referrals: Azael Jose MD [Physician] - Stand Alone Forms: Patient Portal/API
--- NOTE | 2023-09-22 10:14 | PC.NURSE ---
Patient placed splint back on that he arrived with.Discussed discharge information with patient and provider
[2023-09-22 10:15] VITALS: BP 178/76; PULSE 66; RESP 16; O2SAT 98
== END 2023-09-22 10:16 | disposition home or self-care (01) ==
PROVIDERS: Emergency Provider Emergency Medicine; Family Provider Internal Medicine
DX: M25.531 Pain in right wrist (principal)
CPT/HCPCS: 73110; 99281; 99282

== ENCOUNTER → 2024-03-06 09:43 | Outpatient (CLI) | payer MEDICARE, OTHER, SELFPAY ==
--- NOTE | 2024-03-06 09:47 | DI.RAD.S_ITS ---
PROCEDURE: XR HAND LT MIN 3V INDICATIONS: Left hand swelling TECHNIQUE: 3 views of the hand(s) acquired. COMPARISON: None. FINDINGS: Bones: No fractures or dislocations. Carpal bones are normally aligned. No suspicious bony lesions. Soft tissues: No suspicious soft tissue calcifications. IMPRESSION: No acute bony abnormality. Dictated by: Sergei Goldman M.D. on 03/06/2024 at 12:14 Approved by: Sergei Goldman M.D. on 03/06/2024 at 12:14
== END ==
LOC: DI 09:47
PROVIDERS: Family Provider Internal Medicine; Referring Provider Nurse Practitioner Family; Visit Provider Nurse Practitioner Family
DX: M71.9 Bursopathy, unspecified (principal)
CPT/HCPCS: 73130

== ENCOUNTER → 2024-03-15 14:25 | Outpatient (CLI) | payer MEDICARE, OTHER, SELFPAY | LOC: WC 14:26 | PROVIDERS: Family Provider Internal Medicine; Referring Provider Internal Medicine; Visit Provider Surgery | DX: L97.811 Non-pressure chronic ulcer of other part of right lower leg limited to breakdown of skin (principal); L97.821 Non-pressure chronic ulcer of other part of left lower leg limited to breakdown of skin; I87.2 Venous insufficiency (chronic) (peripheral); R60.0 Localized edema; L53.9 Erythematous condition, unspecified; R21 Rash and other nonspecific skin eruption | CPT/HCPCS: 97602; 99214 ==

== ENCOUNTER → 2024-03-23 15:00 | Outpatient (CLI) | payer MEDICARE, OTHER, SELFPAY | LOC: WC 15:01 | PROVIDERS: Family Provider Internal Medicine; Referring Provider Internal Medicine; Visit Provider Surgery | DX: I87.323 Chronic venous hypertension (idiopathic) with inflammation of bilateral lower extremity (principal); R60.0 Localized edema; B35.9 Dermatophytosis, unspecified | CPT/HCPCS: 99213 ==

== ENCOUNTER 2024-10-02 11:39 | Emergency (ER) | payer MEDICARE, OTHER, SELFPAY ==
[2024-10-02 12:01] VITALS: BP 156/95; PULSE 92; RESP 22; TEMP 36.2; O2SAT 100; BMI 58.3
--- NOTE | 2024-10-02 13:06 | ED.BACK ---
HPI - Back Pain/Injury General Chief Complaint: Back Pain/Injury Stated Complaint: back spasms Time Seen by Provider: 10/02/24 12:50 Source: patient and family Mode of arrival: Ambulatory Limitations: no limitations History of Present Illness HPI Narrative: 69-year-old male history of atrial fibrillation, hypertension, dyslipidemia, gout on aspirin daily complaint of back pain after twisting to get intoa pickup truck last week. Has tried ice heat Tylenol and Aleve without any improvement. Patient states he was stepping up into a truck that did not have a running board. He went to move faster than he should have and tweaked his back. He describes it as midthoracic little bit to the right. no other radiation. He denies any midline pain. He states movement seems to make it worse. It is improved with rest. No rash or skin changes. No other trauma or falls. Patient denies any numbness tingling or weakness. No saddle anesthesia. No loss of bowel or bladder control. Has not had back issues occasionally in the past but not regularly. Does have a history of prior bariatric surgery. No tobacco, alcohol or recreational drugs. States in the past about 3-4 years ago he had received from a muscle relaxer for similar symptoms which was very helpful. Related Data Home Medications Medication Instructions Recorded Confirmed tamsulosin 0.4 mg capsule (Flomax) 0.4 mg PO QDAY ##0 08/20/16 03/06/24 allopurinol 100 mg tablet 100 mg PO DAILY 01/31/21 03/06/24 furosemide 20 mg tablet (Lasix) 20 mg PO DAILY 01/31/21 03/06/24 losartan 50 mg tablet 50 mg PO DAILY 01/31/21 03/06/24 metoprolol succinate 200 mg 200 mg PO DAILY 01/31/21 03/06/24 tablet,extended release 24 hr omeprazole 20 mg capsule,delayed 20 mg PO DAILY 01/31/21 03/06/24 release simvastatin 20 mg tablet (Zocor) 20 mg PO DAILY 01/31/21 03/06/24 hydrochlorothiazide 50 mg tablet 50 mg PO DAILY 06/25/24 06/25/24 Previous Rx's Medication Instructions Recorded prednisone 20 mg tablet 40 mg (2 x 20 mg) PO DAILY #6 tabs 06/25/24 diazepam 10 mg tablet (Valium) 10 mg PO TID PRN pain 24 hours #10 10/02/24 tabs tramadol 50 mg tablet 50 mg PO Q6H PRN pain #7 tabs 10/02/24 Allergies Allergy/AdvReac Type Severity Reaction Status Date / Time Influenza Virus Vaccines Allergy Severe Abcess Verified 06/25/24 08:32 [INFLUENZA VIRUS VACCINES] cephalexin [From Keflex] Allergy Joint Pain Verified 06/25/24 08:32 Quinolones Allergy Verified 06/25/24 08:32 Review of Systems Review of Systems ROS Unobtainable: All systems reviewed & are unremarkable except as noted in HPI and below Patient History Medical History Chronic back pain Stasis dermatitis of both legs Obstructive sleep apnea on CPAP Hypertension Morbid obesity with BMI of 60.0-69.9, adult Social History Smoking Status: Never smoker Smoking Status: Never smoker alcohol intake frequency: holidays/special occasions only Exam Narrative Exam Narrative: GENERAL: Alert and oriented x three, obese male with a BMI of 58 HEENT: Head normocephalic, atraumatic, EOMI, pupils reactive, face symmetric, moist mucous membranes NECK: Supple, full range of motion CARDIOVASCULAR: Regular rate and rhythm without murmurs, rubs or gallops. RESPIRATORY: Breath sounds equal bilaterally, no wheezes rales or rhonchi. ABDOMEN: Soft, nontender. Normoactive bowel sounds all 4 quadrants. No guarding or rebound, rigidity, no mass : No CVA tenderness BACK: No cervical, thoracic or lumbar vertebral point tenderness. Patient has a little bit of mild reproducible tenderness on the right upper lumbar midthoracic region. Patient has mildly decreased range of motion. Patient ambulated into department. Rectal exam is deferred. Muscle strength is 5/5 in lower extremities. Dorsalis pedis and tibialis pulses are 2+ and lower extremities. Sensation is intact in the lower extremities. EXTREMITIES: Normal range of motion. Neurovascularly intact NEUROLOGICAL: Cranial nerves II through XII grossly intact. Moving all extremities SKIN: Warm, dry, no petechiae, no rashes or lesions. Initial Vital Signs Initial Vital Signs: Vital Signs Temperature 97.1 F L 10/02/24 12:01 Pulse Rate 92 H 10/02/24 12:01 Respiratory Rate 22 03/02/25 12:01 Blood Pressure 156/95 H 10/02/24 12:01 Pulse Oximetry 100 10/02/24 12:01 Oxygen Delivery Method Room Air 10/02/24 12:01 Course Orders Ordered: Discontinued Medications Diazepam (Diazepam 5 Mg Tablet) 10 mg PO NOW ONE Stop: 10/02/24 13:24 Last Admin: 10/02/24 13:46 Dose: 10 mg Documented By: ERIKA Ketorolac Tromethamine (Ketorolac 30 Mg/Ml Vial) 30 mg IM NOW ONE Stop: 10/02/24 13:24 Last Admin: 10/02/24 13:47 Dose: 30 mg Documented By: ERIKA Vital Signs Vital signs: Vital Signs - 8 hr 10/02/24 12:01 10/02/24 13:50 Temperature 97.1 F L 98.6 F Pulse Rate 92 H 90 Respiratory Rate 22 20 Blood Pressure 156/95 H 160/96 H Pulse Oximetry 100 98 Oxygen Delivery Method Room Air Room Air MDM - Back Pain/Injury MDM Narrative Medical decision making narrative: 69-year-old male with acute low back pain for several days no significant trauma but did states tweaked his back getting into a truck and has been persistent. Has had similar symptoms with a couple years ago. No other red flag symptoms at this time necessitating imaging. We will do a short course of muscle relaxer with plan for follow up. Will do short course of pain medication with return precautions. Discharge Plan Departure Patient Disposition: Home Clinical Impression: Back pain Instructions: DI for Back Spasm Activity Restrictions/Additional Instructions: Follow up with your physician if you are not improving over the next week. You can continue with the acetaminophen up to a 1000 mg every 6 hours and muscle relaxer 1 tablet every 8 hours as needed. This medication can make you sleepy do not drive, perform hazardous activities or make any major decisions while taking it. If inadequate for pain you can take tramadol 1-2 tablets every 6 hours. This medication can make you sleepy do not drive, perform hazardous activities or make any major decisions while taking it. This medication will make you constipated please take a stool softener once to twice daily until stools are soft and regular. Prescription sent to [facility] in [place]. Please return for fevers, worsening back pain, new redness or skin changes, new weakness, loss of sensation, new loss of bowel or bladder control, rapidly worsening pain or other new or concerning changes. Prescriptions: New diazepam [Valium] 10 mg tablet 10 mg PO TID PRN (Reason: pain) 1 Days Qty: 10 0RF tramadol 50 mg tablet 50 mg PO Q6H PRN (Reason: pain) Qty: 7 0RF No Action hydrochlorothiazide 50 mg tablet 50 mg PO DAILY prednisone 20 mg tablet 40 mg PO DAILY Qty: 6 0RF losartan 50 mg tablet 50 mg PO DAILY simvastatin [Zocor] 20 mg tablet 20 mg PO DAILY omeprazole 20 mg capsule,delayed release(DR/EC) 20 mg PO DAILY metoprolol succinate 200 mg tablet extended release 24 hr 200 mg PO DAILY furosemide [Lasix] 20 mg tablet 20 mg PO DAILY allopurinol 100 mg tablet 100 mg PO DAILY tamsulosin [Flomax] 0.4 MG capsule,extended release 24hr 0.4 mg PO QDAY Qty: 0 Referrals: Sergei Jordan MD [Primary Care Provider] - Stand Alone Forms: Patient Portal/API/Survey
[2024-10-02] MEDS: diazePAM 5 MG TABLET 10 MG PO (13:46)
[2024-10-02] MEDS: KETOROLAC 30 MG/ML VIAL IM (13:47)
[2024-10-02 13:50] VITALS: BP 160/96; PULSE 90; RESP 20; TEMP 37; O2SAT 98
== END 2024-10-02 13:52 | disposition home or self-care (01) ==
PROVIDERS: Emergency Provider Emergency Medicine; Family Provider Internal Medicine; PCP Family Medicine
DX: M54.6 Pain in thoracic spine (principal); X50.1XXA Overexertion from prolonged static or awkward postures, initial encounter; I48.91 Unspecified atrial fibrillation; Z79.01 Long term (current) use of anticoagulants; E78.5 Hyperlipidemia, unspecified; I10 Essential (primary) hypertension
CPT/HCPCS: 96372; 99283; J1885

== ENCOUNTER → 2024-11-08 10:31 | Outpatient (CLI) | payer MEDICARE, OTHER, SELFPAY ==
--- NOTE | 2024-11-08 10:34 | DI.RAD.S_ITS ---
PROCEDURE: XR KNEE LT 3V INDICATIONS: knee pain TECHNIQUE: 3 views of the knee were acquired. COMPARISON: [facility], CR, XR KNEE LT 3V, 12/24/2022, 18:40. FINDINGS: Bones: There are no osseous abnormalities. 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 Dictated by: Lonnie Ryan M.D. on 11/09/2024 at 9:48 Approved by: Lonnie Ryan M.D. on 11/09/2024 at 9:49
== END ==
PROVIDERS: PCP Family Medicine; Referring Provider Physician Assistant; Visit Provider Physician Assistant
DX: S86.912A Strain of unspecified muscle(s) and tendon(s) at lower leg level, left leg, initial encounter (principal); M17.12 Unilateral primary osteoarthritis, left knee; X58.XXXA Exposure to other specified factors, initial encounter
CPT/HCPCS: 73562